=== PATIENT | male | born 1995 | race Two or more races ===

== ENCOUNTER 2024-11-17 11:33 | Emergency (ER) | payer MEDICAID, SELFPAY ==
[2024-11-17 11:35] VITALS: BMI 34.4
[2024-11-17 11:47] VITALS: BP 124/66; PULSE 102; RESP 20; TEMP 39.3; O2SAT 100; BMI 34.6
[2024-11-17 12:28] VITALS: BP 129/84; PULSE 103; RESP 20; TEMP 38; O2SAT 100
--- NOTE | 2024-11-17 12:45 | XR_ITS ---
Examination: PA lateral chest 2 views TECHNIQUE: Upright PA lateral chest 2 views Exam date and time: November 17, 2024 1304 hours INDICATIONS: Coughing this week FINDINGS: Bibasilar pneumonia, right middle lobe pneumonia Normal heart size Lungs are clear IMPRESSION: Bibasilar and right middle lobe pneumonia
[2024-11-17] MEDS: IBUPROFEN TAB 400 MG TABLET 800 MG PO (13:17)
[2024-11-17] MEDS: ACETAMINOPHEN 500 MG TABLET 1000 MG PO (13:17)
--- NOTE | 2024-11-17 13:31 | EDNOTE_ITS ---
ED SOB =RME/HPI General Chief Complaint: Shortness of Breath/Dyspnea Stated Complaint: URI SYMPTOMS<FEELS WORSE NOW Time Seen by Provider: 11/17/24 12:16 Source: patient Arrival date/time: 11/17/24 11:33 This is a 28-year-old male who presents to the emergency department with complaints of bodyaches, fever cough rhinorrhea x 2 days. Patient stating he had pneumonia approximately 2 weeks ago unsure if pneumonia has cleared. Positive sick contacts at home. Mode of arrival: ambulatory Related Data Allergies Allergy/AdvReac Type Severity Reaction Status Date / Time No Known Allergies Allergy Verified 11/17/24 11:37 Review of Systems Review of Systems Systems Reviewed: All systems reviewed, normal except as documented Narrative Review of Systems: Gen: +fever, no chills, no weight loss, + body aches EYES: No discharge, no visual changes, no pain HEENT: No ear pain, no congestion, no sore throat PULM: No shortness of breath, +cough, no congestion CV: No chest pain, no dyspnea on exertion, no palpitations GI: No nausea, no vomiting, no diarrhea, no pain, no constipation : No frequency, no urgency,? no dysuria Musc/skel: No joint pain, no back pain Skin: No rash? Neuro: No weakness, no headache ED Exam Narrative Physical exam: General: Sittiing in Exam table in no acute distress, answering questions appropriately HENT: normocephalic, atraumatic, EOMI, PERRLA, moist mucous membranes Chest: chest wall is nontender Cardiac: regular rate and rhythm, normal S1 and S2, no murmurs, rubs, or gallops, capillary refill ?2 seconds Pulmonary: clear to auscultation bilaterally, no wheezing, crackles, or rhonchi Abdominal: active bowel sounds, soft, nontender, nondistended Neuro: A&OX3, CN II-XII intact, sensation grossly intact bilaterally in UE and LE. Skin: no rashes, no ecchymosis Ext: no lower extremity edema Course Quality Measures none Orders Category Date Time Status XR chest 2V Stat Exams 11/17/24 12:45 Completed Acetaminophen Tab [Tylenol ES Tab] Med 11/17/24 12:45 Discontinued 1,000 mg PO X1 ONE Ibuprofen Tab [Motrin Tab] Med 11/17/24 12:45 Discontinued 800 mg PO X1 ONE Vital Signs Vital signs: Vital Signs Temperature 102.8 F H 11/17/24 11:47 Pulse Rate 102 H 11/17/24 11:47 Respiratory Rate 20 11/17/24 11:47 Blood Pressure 124/66 11/17/24 11:47 Pulse Oximetry (%) 100 11/17/24 11:47 Oxygen Delivery Method Room Air 11/17/24 11:47 Shortness of Breath / Dyspnea MDM Narrative MDM Narrative:: Influenza A positive. Advised to take all medication as directed. Advised to increase hydration. Antipyretics at home. Close follow-up with his PCP strict ER precautions to return if there is any worsening symptoms change in condition. Patient data External records reviewed:: [facility] previous records Clinical information provided by:: patient Social determinants that could affect healthcare access:: none Patient has the following chronic illnesses:: none How is presenting disease/condition affected by chronic disease/condition?: no chronic disease Evaluation data The following diagnostics were reviewed and interpreted by me:: radiology exam(s) Lab and/or radiology exams considered but not ordered:: none Interpretation Summary: Examination: PA lateral chest 2 views TECHNIQUE: Upright PA lateral chest 2 views Exam date and time: November 17, 2024 1304 hours INDICATIONS: Coughing this week FINDINGS: Bibasilar pneumonia, right middle lobe pneumonia Normal heart size Lungs are clear IMPRESSION: Bibasilar and right middle lobe pneumonia Medications / Prescriptions Medications or Prescriptions considered but not ordered:: none Medication administrations:: Medication Administration History Discontinued Medications Acetaminophen (Acetaminophen 500 Mg Tablet) 1,000 mg PO X1 ONE Stop: 11/17/24 12:46 Last Admin: 11/17/24 13:17 Dose: 1,000 mg Documented By: CARLOS A Ibuprofen (Ibuprofen Tab 400 Mg Tablet) 800 mg PO X1 ONE Stop: 11/17/24 12:46 Last Admin: 11/17/24 13:17 Dose: 800 mg Documented By: CARLOS A all medications administered and effective Consultations Consultation(s) initiated? (list below): No Diagnosis Shortness of Breath Differential Diagnosis: acute exacerbation of chronic obstructive airways disease, community acquired pneumonia, asthma with exacerbation and other Most likely diagnosis given after review of the tests above:: Influenza A Admission Indicated Admission indicated?: not indicated Explain why admission is indicated or not indicated:: none Admission Request Was there a request for admission?: No Disposition Plan Disposition Plan: Discharge Discharge Attestation Discharge Attestation: The patient and all family members were given an opportunity to ask questions and understood the discharge instructions. Discharge instructions specifically effects, indications for sooner follow up or return to the emergency department, and the expected course of current diagnosis. Patient condition: Stable Discharge Plan Plan Patient Disposition: HOME (Self Care) Patient condition on transfer: Stable Problem List Clinical Impression: Influenza A Patient/Caregiver Discharge Instructions Discharge Activity: activity as tolerated Education Materials: ED Influenza (Adult) Additional Instructions: Start Tamiflu, antipyretics to pharmacy. 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 Please follow-up with your clinic 3-day follow-up. If you develop any type of respiratory distress or change in condition please go immediately to nearest emergency department Print Language: Tajik Stand Alone Forms: Tisha Award Info., Patient Portal Info Letter PA/ABDIEL Supervising Physician KAITLYNN/ABDIEL Supervising Physician: Dr Meléndez
== END 2024-11-17 13:45 | disposition home or self-care (01) ==
PROVIDERS: Emergency Provider Emergency Medicine; PCP Family Medicine
DX: J10.00 Influenza due to other identified influenza virus with unspecified type of pneumonia (principal)
CPT/HCPCS: 71046; 99283; A9270

== ENCOUNTER 2024-12-07 21:21 | Inpatient (IN) | payer MEDICAID, SELFPAY ==
[2024-12-07] VITALS (8 sets, daily range): BP systolic 168–194; BP diastolic 103–111; PULSE 71–100; RESP 15–21; TEMP 36.9; O2SAT 98–100; BMI 29.5
--- NOTE | 2024-12-07 21:29 | XR_ITS ---
Examination: AP chest single view Technique one AP portable supine chest single view Exam date and time: December 07, 2024 10:22 PM Comparison November 17, 2024. Indications: Onset chest pain today. Findings: Normal heart size. Lungs are clear. The osseous structures are intact Impression: No active disease
--- NOTE | 2024-12-07 21:55 | PC.NURSE ---
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 Stroke alert called by myself
--- NOTE | 2024-12-07 22:04 | PC.NURSE ---
stroke consult Case # [id number]
--- NOTE | 2024-12-07 22:07 | XR_ITS ---
Examination: CT brain head without contrast. 2-D sagittal coronal reconstructions Date and time of exam:December 07, 2024 at 10:11 PM Indications: Stroke alert, onset altered mental status today CTDI: vol (mGy):55.1 DLP: (mGycm):1108 Technique: Multiple CT axial sections of the brain have been obtained, 5 mm slice thickness. Contrast has not been administered. 2-D sagittal, coronal reconstructions have been obtained Low dose protocols were performed. One or more of the following dose reduction techniques were used; automated exposure control, adjustment of the mA and/or KV according to patient size, use of iterative reconstruction technique. Findings: No significant ventricular enlargement. Intra-axial or extra-axial hemorrhage density is not seen. No mass effect or midline shift Basal cisterns are not remarkable. Fourth ventricle is midline. Cranial vault intact. Impression: Negative for acute hemorrhage, mass effect or midline shift
--- NOTE | 2024-12-07 22:07 | XR_ITS ---
Examination: CTA carotids with intravenous contrast CTA brain, head with intravenous contrast. 2-D sagittal, coronal reconstructions. 3-D reconstructions. Exam date and time: December 08, 2024 at 0039 hours INDICATIONS: Stroke alert, onset focal neurologic deficit including altered mental status this evening CTDI: vol (mGy) 23 DLP: (mGycm) 854 Technique: Multiple CTA axial brain, head carotid images post intravenous contrast injection 75 cc, Isovue-[id number]. 2-D sagittal, coronal reconstructions. 3-D reconstructions, 3-D post processing including vascular maximum intensity projection images. Low dose protocols were performed. One or more of the following dose reduction techniques were used; automated exposure control, adjustment of the mA and/or KV according to patient size, use of iterative reconstruction technique. Findings: No significant common carotid carotid bifurcation or internal carotid artery stenoses Codominant vertebral arteries with no critical stenoses Limited cerebral arterial evaluation No cerebral large vessel arterial occlusions, thrombus,. IMPRESSION: No significant neck arterial stenoses Limited cerebral arterial evaluation, no large vessel occlusions
--- NOTE | 2024-12-07 22:07 | EKG_ITS ---
[facility] Test Date: 2024-12-07 Pat Name: JEANIE CAMARILLO Department: Room: - Gender: Male Director Of [employer]: : 1995 Requested By: Vianney Zamudio Order Number: [id number] Reading MD: Vianney Zamudio Measurements Intervals Peyton Rate: 77 P: 18 FL: 178 QRS: 31 QRSD: 89 T: 25 QT: 381 QTc: 433 Interpretive Statements SINUS RHYTHM No previous ECG available for comparison /store/S0/[id number]
--- NOTE | 2024-12-07 22:15 | PD.EDAMS ---
Altered Mental Status RME/HPI General Chief Complaint: Altered Mental Status Stated Complaint: ALTERED Time Seen by Provider: 12/07/24 21:28 Arrival date/time: 12/07/24 21:21 Mode of arrival: EMS RME / HPI RME / HPI narrative: Dr. Lee's Main ED Evaluation: 28yo male VITALIY from home presents to the ED for a chief complaint of altered mental status. Per EMS, patient's LKWT is unknown. Per family, patient has been having a headache for the last one week. Full ROS is unobtainable due to the patient's AMS. No family member is present with the patient. Related Data Home Medications ?Medication ?Instructions ?Recorded ?Confirmed No Known Home Medications 12/07/24 12/07/24 Allergies Allergy/AdvReac Type Severity Reaction Status Date / Time No Known Allergies Allergy Verified 11/17/24 11:37 Review of Systems Review of Systems ROS Unobtainable: unobtainable due to mental status Past Medical History Social History SMOKING STATUS: Never smoker ED Exam Narrative Physical exam: Brought in on stretcher, appears confused and cannot state his name. General General appearance: Present other (is mumbling and not answering questions appropriately; is looking over to the side; appears stimulated by internal stimuli; is looking around the room) Head Head exam: Present atraumatic and normocephalic Eye Eye exam: Present normal appearance; Absent scleral icterus, conjunctival injection, nystagmus, miosis or mydriasis Neck Neck exam: Present full ROM (decreased); Absent lymphadenopathy or other (neck stiffness) Chest Chest inspection: Present normal inspection and symmetric chest wall rise; Absent tenderness or rash Respiratory Respiratory exam: Absent accessory muscle use Cardiovascular Cardiovascular exam: Present regular rate and normal rhythm; Absent systolic murmur or diastolic murmur Abdominal Exam Abdominal exam: Present other (large, no fluid wave) exam: Absent circumcised Extremities Exam Extremities exam: Present normal inspection and full ROM Back Exam Back exam: Present normal inspection and full ROM; Absent tenderness, CVA tenderness (R), CVA tenderness (L), paraspinal tenderness or vertebral tenderness Neurological Exam Neurological exam: Present other (is not answering questions appropriately and is mumbling) Psychiatric Psychiatric exam: Present other (combative) Skin Skin exam: Present warm and dry Course Course Course Narrative: CXR is ordered to r/o aspiration pneumonia. 0041: Spoke with the patient's , who states the patient has been nonverbal and anxious. She states the patient has had chills and a headache for the last 2 months. She states the patient has not been eating much recently for the last 1 month. is unsure if the patient does any drugs. She states he saw his PCP on Wednesday and he was normal at the time. She states the patient has not been able to recognize her or other family members that started at 1999, reporting he was in a similar state 2 weeks ago. She states he's been talking, but hasn't been making any sense. 0117: Patient opens his eyes and has purposeful movements, but is agitated and combative. Ketamine was given for agitation. Patient seems less agitated after being given ketamine and Ativan, however, became more combative when trying to complete the CTA. Risks versus benefits were discussed with the patient's regarding LP and intubation due to concern for encephalitis and/or other emergent diagnoses. I answered any and all questions she had regarding these procedures. Patient's agreed to LP an intubation. Quality Measures none Orders Category Date Time Status Bedside Blood Glucose NOW Care 12/07/24 22:07 Active Bedside COVID-19 Antigen Test NOW Care 12/08/24 00:41 Active Bedside Influenza A&B Antigen Test NOW Care 12/08/24 00:41 Active Shell Trim Operator NOW Care 12/07/24 22:07 Active Continuous Pulse Oximetry NOW Care 12/07/24 22:07 Completed EKG (ED ONLY) *Do not use* NOW Care 12/07/24 22:07 Completed In and Out Catheter NEEDED Care 12/07/24 22:07 Active Insert IV NOW Care 12/07/24 22:07 Active NIH Stroke Scale now Care 12/07/24 22:07 Active NPO NOW Care 12/07/24 22:07 Active Nurse Swallow Screen x1 Care 12/07/24 22:07 Active Consult to Neurology / Tele-Neurology Routine Cons 12/07/24 22:[address] angio stroke protocol Stat Exams 12/07/24 22:[address] stroke protocol Stat Exams 12/07/24 22:07 Completed CXRP [XR chest 1V portable] Stat Exams 12/07/24 21:29 Completed EKG (ED Only) Stat Exams 12/07/24 22:07 Draft XR chest 1V post procedure Stat Exams 12/08/24 01:47 Taken ABG [Arterial Blood Gas] Stat Lab 12/08/24 02:25 Ordered Alcohol, Blood Medical Stat Lab 12/08/24 01:05 Completed Ammonia Stat Lab 12/07/24 23:15 Completed Bacterial Ag-Ltx, CSF Stat Lab 12/08/24 02:35 Received Blood Culture (Lab) Stat Lab 12/08/24 02:38 Received CBC Stat Lab 12/07/24 23:15 Completed CRP [C-Reactive Protein] Stat Lab 12/08/24 01:05 Completed CSF Culture and Gram Stain Stat Lab 12/08/24 02:35 Received Cell Count w Diff, CSF Stat Lab 12/08/24 02:35 Completed Cocci Serology IgM with reflex to IgG [Cocci Serology, Lab 12/08/24 01:05 Received Unk History] Stat Coccid Serology, CF CSF (UCD)* Stat Lab 12/08/24 02:35 Received Comprehensive Metabolic Panel Stat Lab 12/07/24 23:15 Completed Creatine Kinase Stat Lab 12/07/24 23:15 Completed Drug Screen,Urine Stat Lab 12/08/24 00:15 Completed Enterovirus RNA, PCR, CSF Stat Lab 12/08/24 02:35 Received Glucose,CSF Stat Lab 12/08/24 02:35 Completed HCG Titer if Positive Stat Lab 12/07/24 23:15 Completed HSV-1&2 DNA, QN, CSF* Stat Lab 12/08/24 02:35 Received Lactic Acid [Lactate (Lactic Acid)] Stat Lab 12/08/24 01:05 Completed Magnesium Stat Lab 12/07/24 23:15 Completed Oligoclonal Bands, CSF* Stat Lab 12/08/24 02:35 Received Partial Thromboplastin Time Stat Lab 12/07/24 23:15 Completed Procalcitonin Stat Lab 12/08/24 01:05 Completed Protein Total,CSF Stat Lab 12/08/24 02:35 Completed Prothrombin Time with INR Stat Lab 12/07/24 23:15 Completed Sed Rate (ESR) Stat Lab 12/07/24 23:15 Completed Sputum Culture and Gram Stain Stat Lab 12/08/24 02:30 Received Troponin I Stat Lab 12/07/24 23:15 Completed Urinalysis Stat Lab 12/08/24 00:15 Completed Urine Culture Stat Lab 12/08/24 00:15 Received VBG [Venous Blood Gas] Stat Lab 12/07/24 23:15 Completed VDRL, CSF Qual* Stat Lab 12/08/24 02:35 Received Acetaminophen Ivpb [Ofirmev Inj] Med 12/08/24 03:18 Discontinued 1,000 mg in 100 ml IV X1 Acyclovir Inj [Zovirax Inj] 907 mg Med 12/08/24 03:45 Active Sodium Chloride 0.9% [Ns] 100 ml IV X1 Ampicillin Inj 2,000 mg Med 12/08/24 03:19 Active Sodium Chloride 0.9% (P) [NS 0.9% mini bag] 100 ml IV X1 Etomidate Inj [Amidate Inj] Med 12/08/24 01:36 Discontinued 20 mg IVP X1 ONE Etomidate Inj [Amidate Inj] Med 12/08/24 01:17 Discontinued 40 mg .ROUTE .STK-MED ONE Ketamine Inj Med 12/07/24 22:56 Discontinued 50 mg IVP X1 ONE LORazepam [Ativan Inj] Med 12/07/24 23:25 Discontinued 2 mg IVP X1 ONE Midazolam Inj [Versed Inj] Med 12/08/24 01:17 Discontinued 4 mg .ROUTE .STK-MED ONE Midazolam Inj [Versed Inj] Med 12/08/24 02:06 Discontinued 4 mg IV X1 ONE Midazolam Inj [Versed Inj] Med 12/08/24 02:46 Discontinued 4 mg IV X1 ONE Midazolam/Ns 100 mg Ivpb [Versed Pf Inj in Ns Premix] Med 12/08/24 02:52 Active 100 mg in 100 ml IV 1 mg/hr Ondansetron Inj [Zofran Inj] Med 12/07/24 22:07 Active 4 mg IV Q4HR PRN Propofol 1,000 mg Ivpb [Diprivan Ivpb] Med 12/08/24 02:06 Discontinued 1,000 mg in 100 ml IV .STK-MED Propofol 1,000 mg Ivpb [Diprivan Ivpb] Med 12/08/24 02:08 Active 1,000 mg in 100 ml IV 5 mcg/kg/min Sodium Chloride 0.9% 500 ml [Ns] 500 ml Med 12/08/24 00:38 Discontinued IV 999 mls/hr Succinylcholine Inj [Anectine Inj] Med 12/08/24 01:36 Discontinued 200 mg IV X1 ONE Succinylcholine Inj [Anectine Inj] Med 12/08/24 01:18 Discontinued 400 mg .ROUTE .STK-MED ONE Vancomycin Inj 2,000 mg Med 12/08/24 03:15 Active Sodium Chloride 0.9% 500 ml [Ns] 500 ml IV X1 cefTRIAXone/D5w 1gm IV premix [Rocephin/D5w 1gm IV Med 12/08/24 03:17 Discontinued premix] 50 ml IV X1 cefTRIAXone/D5w 1gm IV premix [Rocephin/D5w 1gm IV Med 12/08/24 03:37 Active premix] 50 ml IV X1 Mechanical [Volume Ventilator] Stat RT 12/08/24 Active Oxygen Delivery NOW RT 12/07/24 22:07 Active Vital Signs Vital signs: Vital Signs Pulse Rate 75 12/07/24 23:13 Respiratory Rate 17 12/07/24 23:13 Blood Pressure 194/107 H 12/07/24 23:13 Pulse Oximetry (%) 100 12/07/24 23:13 Oxygen Delivery Method Nasal Cannula 12/07/24 23:13 Procedures -ED Procedure Comment See Dr. Sotelo, the resident physician's notes for the lumbar puncture and intubation procedures. Altered Mental Status Patient data External records reviewed:: [facility] previous records (Per chart review, patient was seen here on 11/17/24 for Influenza A.) Clinical information provided by:: EMS Social determinants that could affect healthcare access:: none Patient has the following chronic illnesses:: none How is presenting disease/condition affected by chronic disease/condition?: no chronic disease Evaluation data The following diagnostics were reviewed and interpreted by me:: lab results, radiology exam(s) and EKG tracing(s) Lab and/or radiology exams considered but not ordered:: none Interpretation Summary: WBC count is elevated at 13.2, Sodium is low at 127, Glucose is 123, PTT is normal, PT is elevated at 13.2, Lactic Acid is normal, Total Creatinine Kinase is elevated at 287, Sed Rate is elevated at 68, Ammonia is normal at 26, CRP is elevated at 2.1, UA is unremarkable, UDS is negative, Blood alcohol is negative, CSF total protein is elevated at 160, CSF Glucose is low at 26, according to my interpretation. Post procedure CXR shows the ET tube at the right mainstem (ET tube pushed back), no pneumothorax, no infiltrates, no pleural effusion, no CHF according to my interpretation. EKG done at 2325, NSR, rate of 77, normal axis, normal intervals, QTc: 433, no STEMI, no previous EKG available for comparison, according to my interpretation. ------ [facility] Report Signed Patient: JEANIE ACMARILLO. Record#: [id number] Birthdate: 1995 Age/Sex: 28 / M Location: [facility] Attending Dr: Ordering Physician: Vianney Lee MD Date of Service: 12/07/24 Procedure(s): XR chest 1V portable Accession Number(s): [id number] cc: Eb Persaud MD; NO PRIMARY/FAMILY,PHYSICIAN; Vianney Lee MD~ Examination: AP chest single view Technique one AP portable supine chest single view Exam date and time: December 07, 2024 10:22 PM Comparison November 17, 2024. Indications: Onset chest pain today. Findings: Normal heart size. Lungs are clear. The osseous structures are intact Impression: No active disease Dictated By: Eb Persaud MD Signed By: <Electronically signed by Eb Persaud MD in [place]> 12/07/24 2347 [facility] Report Signed Patient: JEANIE CAMARILLO. Record#: [id number] Birthdate: 1995 Age/Sex: 28 / M Location: [facility] Attending Dr: Ordering Physician: Vianney Lee MD Date of Service: 12/07/24 Procedure(s): CT stroke protocol Accession Number(s): [id number] cc: Eb Persaud MD; Vianney Lee MD~ Examination: CT brain head without contrast. 2-D sagittal coronal reconstructions Date and time of exam:December 07, 2024 at 10:11 PM Indications: Stroke alert, onset altered mental status today CTDI: vol (mGy):55.1 DLP: (mGycm):1108 Technique: Multiple CT axial sections of the brain have been obtained, 5 mm slice thickness. Contrast has not been administered. 2-D sagittal, coronal reconstructions have been obtained Low dose protocols were performed. One or more of the following dose reduction techniques were used; automated exposure control, adjustment of the mA and/or KV according to patient size, use of iterative reconstruction technique. Findings: No significant ventricular enlargement. Intra-axial or extra-axial hemorrhage density is not seen. No mass effect or midline shift Basal cisterns are not remarkable. Fourth ventricle is midline. Cranial vault intact. Impression: Negative for acute hemorrhage, mass effect or midline shift Dictated By: Eb Persaud MD Signed By: <Electronically signed by Eb Persaud MD in [place]> 12/07/24 2216 ------ [facility] Preliminary Report Draft Patient: JEANIE CAMARILLO Record#: [id number] Birthdate: 1995 Age/Sex: 28 / M Location: [facility] Attending Dr: Ordering Physician: Date of Service: Procedure(s): Accession Number(s): cc: ~ CT angiogram of the head and neck with intravenous contrast (axial sections with sagittal and coronal reformats) December 08, 2024 0039 hours Clinical History: Focal neuro deficit, stroke suspected Poor historian & no priors Comparison: None. Findings: Head: The internal carotid, middle and anterior cerebral arteries are patent bilaterally. The intracranial vertebral arteries are patent. The vertebrobasilar junction, basilar and posterior cerebral arteries are patent. No evidence of large vessel occlusion, critical stenosis or aneurysm. Neck: The aortic arch to the extent visualized as well as the origins of the right brachiocephalic, left common carotid, and left subclavian arteries are patent. The common carotid arteries, carotid bulbs, and internal and external carotid arteries are patent. The origins of the vertebral arteries are unremarkable. The right and left vertebral arteries are codominant. No evidence of vascular occlusion, critical stenosis, dissection or aneurysm. The soft tissues of the neck are unremarkable. The osseous structures are unremarkable. Impression: Head: No evidence of large vessel occlusion, critical stenosis or aneurysm. Neck: No evidence of vascular occlusion, critical stenosis, dissection or aneurysm. Discussion Details: Results verbally communicated to Marko Hemphill RN at 04:48 AM ET 08/12/2024. A call back number is provided to facilitate direct [id number] communication. Report Electronically Signed By: Michoacano Rendon 12/08/2024 1:52:09 AM [EST] Medications / Prescriptions Medications or Prescriptions considered but not ordered:: none Medication administrations:: Medication Administration History Propofol (Diprivan Ivpb) 1,000 mg in 100 mls @ 2.722 mls/hr IV .Q24H PRN; Protocol PRN Reason: PER PROTOCOL Stop: 01/07/25 02:07 Last Titration: 12/08/24 03:32 Dose: 15 mcg/kg/min, 8.165 mls/hr Documented By: Admin: 12/08/24 02:15 Dose: 5 mcg/kg/min, 2.722 mls/hr Documented By: TC Co-signed By: SE Midazolam HCl (Versed Pf Inj In Ns Premix) 100 mg in 100 mls @ 1 mls/hr IV .Q24H PRN; Protocol PRN Reason: PER PROTOCOL Stop: 12/13/24 02:51 Last Admin: 12/08/24 03:04 Dose: 10 mg/hr, 10 mls/hr Documented By: TC Co-signed By: KG Vancomycin HCl 2,000 mg/ (Sodium Chloride) 500 mls @ 150 mls/hr IV X1 ONE Stop: 12/08/24 06:34 Ampicillin Sodium 2,000 mg/ (Sodium Chloride) 100 mls @ 100 mls/hr IV X1 ONE Stop: 12/08/24 04:18 Last Admin: 12/08/24 03:37 Dose: 100 mls/hr Documented By: TC Ceftriaxone Sodium/Dextrose (Rocephin/D5w 1gm Iv Premix) 50 mls @ 100 mls/hr IV X1 ONE Stop: 12/08/24 04:06 Last Admin: 12/08/24 03:49 Dose: 100 mls/hr Documented By: TC Acyclovir Sodium 907 mg/ (Sodium Chloride) 118.14 mls @ 100 mls/hr IV X1 ONE Stop: 12/08/24 04:55 Ondansetron HCl (Ondansetron Inj 2 Mg/Ml Inj 2 Ml) 4 mg IV Q4HR PRN PRN Reason: NAUSEA OR VOMITING Stop: 01/06/25 22:06 Last Admin: 12/07/24 23:13 Dose: 4 mg Documented By: TC Discontinued Medications Etomidate (Etomidate Inj 2 Mg/Ml Vial 10 Ml) Confirm Administered Dose 40 mg .ROUTE .STK-MED ONE Stop: 12/08/24 01:18 Last Admin: 12/08/24 01:42 Dose: Not Given Documented By: TC Non-Admin Reason: Duplicate Medication on eMAR Etomidate (Etomidate Inj 2 Mg/Ml Vial 10 Ml) 20 mg IVP X1 ONE Stop: 12/08/24 01:37 Last Admin: 12/08/24 01:41 Dose: 20 mg Documented By: TC Sodium Chloride (Ns) 500 mls @ 999 mls/hr IV .Q31M ONE Stop: 12/08/24 01:08 Last Admin: 12/08/24 02:36 Dose: Not Given Documented By: SE Non-Admin Reason: Cancelled by Provider Propofol (Diprivan Ivpb) Confirm Administered Dose 1,000 mg in 100 mls @ ud IV .STK-MED ONE Stop: 12/08/24 02:07 Last Admin: 12/08/24 02:16 Dose: Not Given Documented By: TC Non-Admin Reason: Duplicate Medication on eMAR Acetaminophen (Ofirmev Inj) 1,000 mg in 100 mls @ 250 mls/hr IV X1 ONE Stop: 12/08/24 03:41 Last Admin: 12/08/24 03:35 Dose: 250 mls/hr Documented By: TC Ceftriaxone Sodium/Dextrose (Rocephin/D5w 1gm Iv Premix) 50 mls @ 100 mls/hr IV X1 ONE Stop: 12/08/24 03:46 Last Admin: 12/08/24 03:44 Dose: 100 mls/hr Documented By: Infusion: 12/08/24 03:44 Dose: Infused Documented By: Admin: 12/08/24 03:32 Dose: 100 mls/hr Documented By: TC Ketamine HCl (Ketamine 50 Mg/Ml Vial 10 Ml) 50 mg IVP X1 ONE Stop: 12/07/24 22:57 Last Admin: 12/07/24 23:13 Dose: 50 mg Documented By: TC Lorazepam (Lorazepam 2 Mg/Ml Vial) 2 mg IVP X1 ONE Stop: 12/07/24 23:26 Last Admin: 12/08/24 00:12 Dose: 2 mg Documented By: TC Midazolam HCl (Midazolam Inj 1 Mg/Ml Vial 2 Ml) Confirm Administered Dose 4 mg .ROUTE .STK-MED ONE Stop: 12/08/24 01:18 Last Admin: 12/08/24 01:42 Dose: Not Given Documented By: TC Non-Admin Reason: Duplicate Medication on eMAR Midazolam HCl (Midazolam Inj 1 Mg/Ml Vial 2 Ml) 4 mg IV X1 ONE Stop: 12/08/24 02:07 Last Admin: 12/08/24 02:14 Dose: 4 mg Documented By: TC Midazolam HCl (Midazolam Inj 1 Mg/Ml Vial 2 Ml) 4 mg IV X1 ONE Stop: 12/08/24 02:47 Succinylcholine Chloride (Succinylcholine Inj 20 Mg/Ml Vial 10 Ml) Confirm Administered Dose 400 mg .ROUTE .STK-MED ONE Stop: 12/08/24 01:19 Last Admin: 12/08/24 01:42 Dose: Not Given Documented By: TC Non-Admin Reason: Duplicate Medication on eMAR Succinylcholine Chloride (Succinylcholine Inj 20 Mg/Ml Vial 10 Ml) 200 mg IV X1 ONE Stop: 12/08/24 01:37 Last Admin: 12/08/24 01:44 Dose: 200 mg Documented By: TC see above Consultations Consultation(s) initiated? (list below): Yes Consultation #1 (Physician, Specialty, Details): Discussed case with [Dr. Feliciano] from [teleneurology] regarding [consultation]. Discussed patients ED course, exam findings, labs, and radiology results. States the patient is not a tPA candidate due to not feeling that the patient is having a stroke and feels that the patient is agitated. Time: 22:44 Consultation #2 (Physician, Specialty, Details): Discussed case with [the ICU resident] from Hospitalist service regarding admission. Discussed patients ED course, exam findings, labs, and radiology results. The Hospitalist [agrees] to accept the patient for admission. Time: 03:49 Diagnosis Differential diagnosis altered mental status: other (meningitis, drug use, seizure, other metabolic dysfunction, stroke, psychiatric disease, ICH, cancer) Most likely diagnosis given after review of the tests above:: see below Admission Indicated Admission indicated?: indicated Admission Request Was there a request for admission?: Yes Admission Attestation Admission request attestation: Discussed case with [] from Hospitalist service regarding admission. Discussed patients ED course, exam findings, labs, and radiology results. The Hospitalist [agrees,declines] to accept the patient for admission. Disposition Plan Disposition Plan: Admit Critical Care Time Critical Care Time Critical Care Time: Yes Total Critical Care Time (min.): 45 Attestation: The high probability of sudden, clinically significant deterioration in the patient?s condition required the highest level of my preparedness to intervene urgently. The services I provided to this patient were to treat and/or prevent clinically significant deterioration. Services included the following: chart data review, reviewing nursing notes and/or old charts, documentation time, safety and health consultant collaboration regarding findings and treatment options, medication orders and management, direct patient care, vital sign assessments and ordering, interpreting and reviewing diagnostic studies and lab tests. Aggregate critical care time includes only time during which I was engaged in work directly related to the patient?s care, as described above, whether at bedside or elsewhere in the Emergency Department. It did not include time spent performing other reported procedures or the services of residents, students, nurses or physician assistants. Discharge Plan Plan Patient Disposition: Admit Acute Care w/in Hospital Patient condition on transfer: Stable Prescriptions/Referrals Prescriptions/Med Rec: No Action No Known Home Medications Referrals: No Primary/Family,Physician [Primary Care Provider] - In 1 week Problem List Clinical Impression: Altered mental status, Meningitis Patient/Caregiver Discharge Instructions Print Language: Egyptian Stand Alone Forms: Tisha Award Info., Patient Portal Info Letter
[2024-12-07] MEDS: KETAMINE 50 MG/ML VIAL 10 ML IVP (23:13)
[2024-12-07] MEDS: ONDANSETRON INJ 2 MG/ML INJ 2 ML 4 MG IV (23:13)
--- NOTE | 2024-12-07 23:24 | PD.TNEURO ---
Tele Neuro Consultation Consultation Date 12/07/24 Most Recent Vital Signs Last Vital Signs Pulse 75 12/07/24 23:13 Resp 17 12/07/24 23:13 BP 194/107 H 12/07/24 23:13 Pulse Ox 100 12/07/24 23:13 O2 Del Method Nasal Cannula 12/07/24 23:13 Consultation Narrative [facility] Tele[facility]urology Consult Services Patient Name:???yamilka hooker Date of :???1995 Identification Number:??? Date of Service:???12/07/2024 22:04:06 Diagnosis:?R45.1 - Restlessness and agitation Impression: ?28 yo man presenting for evaluation of agitation and combativeness. Unclear etiology, unclear PMH. No focal deficits noted. Overall low suspicion of stroke. I certainly would not recommend use of thrombolytics. I do think he will need to be admitted for further workup. Our recommendations are outlined below. Recommendations: ? Stroke/Telemetry Floor ? Neuro Checks ? Bedside Swallow Eval ? DVT Prophylaxis ? IV Fluids, Normal Saline ? Head of Bed 30 Degrees ? Euglycemia and Avoid Hyperthermia (PRN Acetaminophen) Advanced Imaging:Advanced Imaging Deferred because: Stroke not suspected with clinical presentation and exam Metrics: Last Known Well: Unknown Dispatch Time: 12/07/2024 22:04:06 Arrival Time: 12/07/2024 21:21:00 Initial Response Time: 12/07/2024 22:08:57Symptoms: agitation. Initial patient interaction: 12/07/2024 22:17:55 NIHSS Assessment Completed: 12/07/2024 22:18:50Patient is not a candidate for Thrombolytic. Thrombolytic Medical Decision: 12/07/2024 22:19:30Patient was not deemed candidate for Thrombolytic because of following reasons: other diagnosis suspected see impression. CT head showed no acute hemorrhage or acute core infarct. Primary Provider Notified of Diagnostic Impression and Management Plan on: 12/07/2024 22:43:34 History of Present Illness:Patient is a 28 year old Male. Patient was brought by EMS for symptoms of agitation. This is a 28 yo man who presents for evaluation of agitation and being combative. I believe EMS told ER staff last normal was 1900 but this is unverified. The patient is Montserratian speaking only and is not cooperating with staff. Not answering questions, but swearing at staff and asking for a female nurse. No focal deficits noted: he is moving all extremities seemingly equally. No obvious facial droop, no gaze deviation. Head CT negative. ? Past Medical History: Other PMH:? unclear Medications: Anticoagulant use:??Unknown Antiplatelet use:?Unknown Reviewed EMR for current medications Allergies:? Description:?unknown patient not cooperating Social History: Unable To Obtain Due To Patient Status :?Patient Cannot Communicate Relevant Social History Family History: Family History Cannot Be Obtained Because:Patient Cannot Speak ROS :?ROS Cannot Be Obtained Because:? Patient Cannot Speak Past Surgical History: Past Surgical History Cannot Be Obtained Because: Patient Cannot Speak There Is No Surgical History Contributory To Today?s Visit ? Examination: BP(194/107),?Pulse(75), 1A: Level of Consciousness - Alert; keenly responsive?+ 0 1B: Ask Month and Age - Could Not Answer Either Question Correctly?+ 2 1C: Blink Eyes & Squeeze Hands - Performs 0 Tasks?+ 2 2: Test Horizontal Extraocular Movements - Normal?+ 0 3: Test Visual Palacios - No Visual Loss?+ 0 4: Test Facial Palsy (Use Grimace if Obtunded) - Normal symmetry?+ 0 5A: Test Left Arm Motor Drift - No Drift for 10 Seconds?+ 0 5B: Test Right Arm Motor Drift - No Drift for 10 Seconds?+ 0 6A: Test Left Leg Motor Drift - No Drift for 5 Seconds?+ 0 6B: Test Right Leg Motor Drift - No Drift for 5 Seconds?+ 0 7: Test Limb Ataxia (FNF/Heel-Stanford) - No Ataxia?+ 0 8: Test Sensation - Normal; No sensory loss?+ 0 9: Test Language/Aphasia - Normal; No aphasia?+ 0 10: Test Dysarthria - Normal?+ 0 11: Test Extinction/Inattention - No abnormality?+ 0 NIHSS Score:?4 Pre-Morbid Modified Paula Scale:0 Points = No symptoms at all Spoke with :?Dr. Lee This consult was conducted in real time using interactive audio and video technology. Patient was informed of the technology being used for this visit and agreed to proceed. Patient located in hospital and provider located at home/office setting. Patient is being evaluated for possible acute neurologic impairment and high probability of imminent or life-threatening deterioration. I spent total of 20 minutes providing care to this patient, including time for face to face visit via telemedicine, review of medical records, imaging studies and discussion of findings with providers, the patient and/or family. Dr Serg Feliciano [facility] For Inpatient follow-up with [facility] physician please call [facility] at . As we are not an outpatient service for any post hospital discharge needs please contact the hospital for assistance. If you have any questions for the [facility] physicians or need to reconsult for clinical or diagnostic changes please contact us via [facility] at . ?
[2024-12-07 23:36] LABS: Base Excess, Venous 0 (-3-3); O2 Saturation, Venous 100 % (96-97); PCO2, Venous 37 mmHg (36-56); PO2, Venous 179 mmHg (15-58); pH, Venous 7.42 (7.33-7.66)
[2024-12-07 23:56] LABS: Ammonia 26 uMol/L (11-32)
[2024-12-07 23:57] LABS: Alanine Aminotransferase 42 U/L (10-49); Albumin, Serum 4.9 gm/dL (3.5-5.0); Albumin/Globulin Ratio 1.4 (1.2-2.2); Alkaline Phosphatase 76 U/L (46-116); Anion Gap 11 (7-16); Aspartate Amino Transferase 21 U/L (0-34); BUN/Creatinine Ratio 8 Ratio (12-20); Bilirubin,Total 1.1 mg/dL (0.3-1.2); Blood Urea Nitrogen 8 mg/dL (9-23); Calcium 9.7 mg/dL (8.3-10.6); Calcium (Corrected) 9.7 mg/dL (8.5-10.1); Carbon Dioxide 22.9 mMol/L (20.0-31.0); Chloride 93 mMol/L (98-107); Creatine Kinase 287 U/L (34-171); Estimated Creatinine Clearance 122.4 mL/min (>60); Globulin 3.4 gm/dL (2.3-3.5); Glucose 123 mg/dL (74-106); Magnesium 2.1 mg/dL (1.6-2.6); Osmolality,Calculated 254 (275-295); Potassium 3.5 mMol/L (3.4-5.1); Sodium 127 mMol/L (136-145); Total Protein 8.3 gm/dL (5.7-8.2); Troponin I < 0.020 ng/mL (0.0-0.045); eGFR > 60 See Note
[2024-12-07 23:58] LABS: Basophils % (Auto) 0 % (0-2.5); Eosinophils % (Auto) 0 % (0-10); Hematocrit 40.2 % (41.0-53.0); Hemoglobin 14.4 g/dL (13.5-16.0); Immature Granulocytes % (Auto) 0 % (0-0); Immature Granulocytes Auto 0.05 Thou/mm3 (0.00-0.00); Lymphocytes # (Auto) 2.8 Thou/mm3 (1.0-4.8); Lymphocytes % (Auto) 21 % (10-50); Mean Corpuscular HGB Conc 35.8 g/dl (31.0-37.0); Mean Corpuscular Hemoglobin 29.4 pg (25.0-35.0); Mean Corpuscular Volume 82 fL (80-100); Monocytes # (Auto) 0.8 Thou/mm3 (0.0-0.8); Monocytes % (Auto) 6 % (0-12); Neutrophils # (Auto) 9.5 Thou/mm3 (1.8-7.7); Neutrophils % (Auto) 72 % (37-80); Nucleated Red Blood Cell % 0 /100 WBC (0); Platelet Count 261 Thou/mm3 (140-440); RDW Standard Deviation 37.2 fL (35.1-43.9); White Blood Count 13.2 Thou/mm3 (3.8-10.6)
[2024-12-08] VITALS (80 sets, daily range): BP systolic 101–169; BP diastolic 54–107; PULSE 47–117; RESP 11–22; TEMP 36–38; O2SAT 85–100; BMI 30.7
[2024-12-08 00:06] LABS: INR 1.2 (0.9-1.3); Partial Thromboplastin Time 29.9 Seconds (22.0-36.0); Prothrombin Time 13.2 Seconds (9.0-12.2)
[2024-12-08] MEDS: LORazepam 2 MG/ML VIAL IVP (00:12)
[2024-12-08 00:19] LABS: Collection Type, Urine Voided; Squamous Epithelial Cell,Urine 0 /hpf (0-5)
[2024-12-08 00:24] LABS: Bilirubin,Urine Negative (Negative); Blood,Urine Negative (Negative); Clarity,Urine Clear (Clear/Hazy); Color,Urine Colorless (Lt Yel-Yel); Glucose, Urine Negative (Negative); Ketones,Urine Negative (Negative); Leukocyte Esterase,Urine Negative (Negative); Nitrite,Urine Negative (Negative); PH,Urine 7.5 (5.0-7.0); Protein,Urine Negative (Neg - Trace); RBC,Urine 2 /hpf (0-3); Specific Gravity,Urine 1.005 (1.001-1.035); Urobilinogen,Urine Negative mg/dL (0.0-1.0); WBC,Urine 4 /hpf (0-5)
[2024-12-08 00:30] LABS: HCG Titer if Positive Negative
[2024-12-08 00:33] LABS: Amphetamine/Methamp Scrn,U Negative (Negative); Barbiturate Screen,Urine Negative (Negative); Benzodiazepines Screen,Urine Negative (Negative); Benzoylecgonine Screen, Ur Negative (Negative); Fentanyl Screen,Urine Negative (Negative); Opiate Screen,Urine Negative (Negative); THC Screen,Urine Negative (Negative)
[2024-12-08 01:16] LABS: Lactate (Lactic Acid) 1.2 mMol/L (0.4-2.0)
[2024-12-08 01:19] LABS: Sed Rate (ESR) 68 mm/hr (0-15)
[2024-12-08] MEDS: ETOMIDATE INJ 2 MG/ML VIAL 10 ML 20 MG IVP (01:41)
[2024-12-08 01:42] LABS: Alcohol, Blood Medical < 3.0 mg/dL (0-10.0)
[2024-12-08] MEDS: SUCCINYLCHOLINE INJ 20 MG/ML VIAL 10 ML 200 MG IV (01:44)
--- NOTE | 2024-12-08 01:47 | XR_ITS ---
Indication: AP chest single view Technique one AP portable semiupright chest single view Exam date and time: December 08, 2024 1434 hours COMPARISON: December 07, 2024 INDICATIONS: Hypoxic respiratory failure today FINDINGS: Mild opacity left base consider aspiration pneumonia Orogastric tube satisfactory position Tracheal tube tip 4 cm above yany IMPRESSION: Mild opacity left base, consider aspiration pneumonia Tracheal tube tip 4 cm above yany
--- NOTE | 2024-12-08 01:52 | PRELIM_ITS ---
CT angiogram of the head and neck with intravenous contrast (axial sections with sagittal and coronal reformats) December 08, 2024 0039 hours Clinical History: Focal neuro deficit, stroke suspected Poor historian & no priorsComparison: None.Findings:Head: The internal carotid, middle and anterior cerebr al arteries are patent bilaterally. The intracranial vertebral arteries are patent. The vertebrobasil ar junction, basilar and posterior cerebral arteries are patent. No evidence of large vessel occlusio n, critical stenosis or aneurysm.Neck: The aortic arch to the extent visualized as well as the origin s of the right brachiocephalic, left common carotid, and left subclavian arteries are patent. The com mon carotid arteries, carotid bulbs, and internal and external carotid arteries are patent. The origi ns of the vertebral arteries are unremarkable. The right and left vertebral arteries are codominant. No evidence of vascular occlusion, critical stenosis, dissection or aneurysm. The soft tissues of th e neck are unremarkable. The osseous structures are unremarkable.Impression: Head: No evidence of lar ge vessel occlusion, critical stenosis or aneurysm.Neck: No evidence of vascular occlusion, critical stenosis, dissection or aneurysm.Discussion Details: Results verbally communicated to Marko Hemphill RN at 04:48 AM ET 08/12/2024. A call back number is provided to facilitate direct [id number] noa communication. Report Electronically Signed By: Michoacano Rendon 12/08/2024 1:52:09 AM [EST]
[2024-12-08 01:53] LABS: C-Reactive Protein 2.1 mg/dL (0.0-0.9); Procalcitonin 0.22 ng/ml (0.0-0.49)
[2024-12-08] MEDS: MIDAZOLAM INJ 1 MG/ML VIAL 2 ML 4 MG IV ×2 (02:14→05:49)
[2024-12-08] MEDS: PROPOFOL 1,000 MG IVPB 1,000 MG/100 ML VIAL 2.722 MG IV (02:15)
--- NOTE | 2024-12-08 02:31 | ESOP_ITS ---
Procedures Procedure Date / Time 12/08/24 0231 Procedure Narrative Procedure Narrative: Endotracheal Intubation Date: 12-08-2024 Time: 02:00 AM Indication:?Respiratory Distress/ Altered mental status to protect air way Performing Physician: Sanju Sotelo MD Attending Physician: Vianney Morris MD A time-out was completed verifying correct patient, procedure, site, positioning, and special equipment if applicable. The patient was placed in a flat position. Sedation was obtained using?Versed 4mg, succinylcholine 200mg and?Etomidate 20mg. The patient was initially ventilated using an ambu bag to achieve 100% oxygen sats. The?GLIDESCOPE / MAC 3 BLADE?was used and inserted into the oropharynx at which time there was a Grade 1 view of the vocal cords. A 8.0-belarusian endotracheal tube was inserted and visualized going through the vocal cords. The stylette was removed. Colorimetric change was visualized on the CO2 meter. Breath sounds were heard in both lung downs equally. The endotracheal tube was placed at?24 cm, measured at the teeth. Attending Dr Morris was present for the entire procedure. A chest x-ray was ordered to?verify?endotracheal tube placement. Estimated Blood Loss: 0ml The patient tolerated the procedure well and there were no complications - Sanju Sotelo MD, PGY2 The patient was seen by the resident and myself. I, the co-signing physician, was present during the entire ER visit, history. PE, and management of this patient. I read and agree with the plan and documentation. Vianney Smart MD FACEP
--- NOTE | 2024-12-08 02:39 | ESOP_ITS ---
Procedures Procedure Date / Time 12/08/24 0239 Procedure Narrative Procedure Narrative: Lumbar Puncture Procedure Note Date: 12-08-2024 Time: 02:20 AM Indication:? Altered mental status Performing Physician: Sanju Sotelo MD Attending?Physician: Vianney Morris MD Procedure summary: A time-out was completed verifying correct patient, procedure, site, positioning, and special equipment if applicable. The procedure was described to the patient in the presence of . All the indications and potential side effects of the procedure were discussed in details (including but not limited to risk of bleeding,?infection, nerve injury and post LP headache). Patient was understanding, agreeable and all questions were answered. The patient was placed in the?right lateral?decubitus position in a semi- position with help from the nursing staff. The area was cleansed and draped in usual sterile fashion. 1% lidocaine was used anesthetize the surrounding skin area. A 3.5-inch spinal n eedle was placed in the?L3-L4 interspace. Clear cerebral spinal fluid was obtained. Four tubes were filled with 1cc each of CSF in first three tubes and 2cc of CSF in the fourth tube. These were sent for the usual tests, including 1 tube to be held for further analysis if needed. Attending Dr Morris was present for the entire procedure to supervise. Estimated Blood Loss: 1ml. Complications: No complications during the procedure. - Sanju Sotelo M.D., PGY2 The patient was seen by the resident and myself. I, the co-signing physician, was present during the entire ER visit, history. PE, and management of this patient. I read and agree with the plan and documentation. Vianney Smart MD FACEP
[2024-12-08 02:51] LABS: CSF Mononuclear 78.6 %; CSF Red Blood Cell 0.001 /cmm; CSF White Blood Cell 262 /cmm
[2024-12-08 02:53] LABS: Coccid Serology, CF CSF (UCD)* See Sep Rpt
[2024-12-08 02:57] LABS: CSF Cell Count Tube # Tube # 4; CSF Color Colorless (Colorless); CSF, Appearance Clear (Clear)
[2024-12-08 02:58] LABS: CSF Polynuclear WBC 21.4 %
[2024-12-08] MEDS: MIDAZOLAM/NS 100 MG IVPB 100 MG/100 ML BAG 10 MG IV (03:04)
[2024-12-08 03:18] LABS: Protein Total,CSF 160 mg/dL (8-32)
[2024-12-08 03:23] LABS: Glucose,CSF 26 mg/dL (40-70)
[2024-12-08] MEDS: cefTRIAXone/D5w 1gm IV premix 50 ML IV ×3 (03:32→03:49)
[2024-12-08] MEDS: ACETAMINOPHEN IVPB 1,000 MG/100 ML VIAL 250 MG IV (03:35)
[2024-12-08] MEDS: Ampicillin Inj 2,000 MG in SODIUM CHLORIDE 0.9% (P) 100 ML 100 MG IV (03:37)
[2024-12-08 03:48] LABS: CSF Gram Stain Alert Gram Stain Completed
[2024-12-08 04:05] LABS: Ag, Group B Strep Negative (Negative); Ag, H Influenza B Negative (Negative); Ag, N Mening B/Ecoli K1 Negative (Negative); Ag, N Meningitidis ACY W135 Negative (Negative); Ag, Strep Pneumonia Negative (Negative)
[2024-12-08] MEDS: Vancomycin Inj 2,000 MG in SODIUM CHLORIDE 0.9% 500 ML 500 ML 150 MG IV (04:22)
--- NOTE | 2024-12-08 04:35 | ESHP_ITS ---
Documentation for date of: 12/08/24 [facility] History of Present Illness Chief complaint: AMS History of present illness: Mr. Alberto Donovan is a 28-year-old male with no known past medical history who presented to the ED on 12/07/2024 due to altered mental status. Due to the patient being intubated and sedated at the time of the initial evaluation, history was obtained from chart review and from the patient's . Per the patient's , she noted he had a pneumonia approximately 1 month ago with associated symptoms of myalgias and fevers. She also noted the patient has been having frontal and occipital headaches, intermittent chills and nausea and vomiting over the last 2 weeks and has been feeling generally unwell. She also notes that 2 weeks prior he had a episode where he was mumbling his words and was unintelligible. She noted that the episode lasted for short time and resolved on its own. She did also note that the patient is known to use cocaine but is unsure when he last used cocaine. Due to the patient's acute change in mentation, the patient was subsequently brought to the ED via EMS. ED course: The patient's vitals on arrival to the ED were within normal limits except for a elevated blood pressure of 194/107. Initial labs were notable for a WBC of 13.2, ESR of 68 and CRP of 2.1. A CHEM panel revealed a low sodium of 127 and chloride of 93. Serum osmolality was also low at 254. Creatinine kinase was slightly elevated at 287. Lactic acid was within normal limits. Urinalysis was WNL. urine toxicology was negative. A chest x-ray was negative for any active disease processes. A stroke alert was initiated due to the patient's acute change in mentation. A noncontrast head CT was negative for any acute intracranial hemorrhage, mass effect or midline shift. CT angiogram of the head and neck with contrast was negative for any LVO or stenosis. Due to the patient becoming combative and aggressive, the decision was made to sedate the patient with intubation. Due to concern of meningitis/encephalitis, an LP was performed which showed elevated WBC of 262 and protein of 160 and low glucose of 26 consistent with a [employer] infection. The patient was subsequently admitted to the ICU for workup of meningitis/encephalitis and ventilator management. Review of Systems Review of Systems ROS Unobtainable: unobtainable due to mental status and due to endotracheal tube Past Medical History Past Medical History Comments PMH COMMENT: Past Medical History: No significant past medical history Past Surgical History: No past surgical procedures Home Medications: No medications Allergies: NKDA Family History: Noncontributory Social History: EtOH usage: Occasional EtOH usage Smoking History: No past smoking history noted Illicit drug usage: Patient's states that he does used cocaine in the past, unknown last usage Exam Vital Signs Temp Pulse Resp BP Pulse Ox O2 Del Method O2 Flow Rate 100.4 F 111 H 18 122/80 100 Mechanical Ventilation 4 12/08/24 03:14 12/08/24 04:04 12/08/24 04:04 12/08/24 04:04 12/08/24 04:04 12/08/24 04:04 12/07/24 23:25 FiO2 60 12/08/24 04:04 Narrative Exam General: GCS 3T HEENT: NC/AT, NT, patient noted to wince upon flexion of the neck Lungs: Clear to auscultation bilaterally CVS: Regular rate and rhythm, no murmurs, rubs or gallops appreciated ABD: Soft, nontender, nondistended EXT: No edema, warm and well-perfused unable to assess range of motion Neuro: Unable to assess. No gross focal neurological deficits noted Results: Labs 12/08/24 05:35 12/07/24 23:15 Labs: Short CBC 12/07/24 Range/Units 23:15 WBC 13.2 H (3.8-10.6) Thou/mm3 Hgb 14.4 (13.5-16.0) g/dL Hct 40.2 L (41.0-53.0) % Plt Count 261 (140-440) Thou/mm3 BMP 12/07/24 23:15 Sodium 127 L Potassium 3.5 Chloride 93 L Carbon Dioxide 22.9 BUN 8 L Creatinine 1.0 Glucose 123 H Calcium 9.7 Cardiac Enzymes 12/07/24 Range/Units 23:15 Total Creatine Kinase 287 H (34-171) U/L Troponin I < 0.020 (0.0-0.045) ng/mL Liver Function 12/07/24 Range/Units 23:15 Total Bilirubin 1.1 (0.3-1.2) mg/dL AST 21 (0-34) U/L ALT 42 (10-49) U/L Alkaline Phosphatase 76 (46-116) U/L Albumin 4.9 (3.5-5.0) gm/dL Urine 12/08/24 Range/Units 00:15 Urine Color Colorless A (Lt Yel-Yel) Urine Clarity Clear (Clear/Hazy) Urine pH 7.5 H (5.0-7.0) Ur Specific Freedom 1.005 (1.001-1.035) Urine Protein Negative (Neg - Trace) Urine Glucose (UA) Negative (Negative) ABG Interpretation ABG results: 12/07/24 23:15 VBG pH 7.42 VBG pCO2 37 VBG pO2 179 H VBG Base Excess 0 Quality Measures Quality Measures none Medications Home Medications and Allergies Home Medications ?Medication ?Instructions ?Recorded ?Confirmed ?Type No Known Home Medications 12/07/24 12/07/24 History Allergies Allergy/AdvReac Type Severity Reaction Status Date / Time No Known Allergies Allergy Verified 11/17/24 11:37 Visit Medications Propofol (Diprivan Ivpb) 1,000 mg in 100 mls @ 2.722 mls/hr IV .Q24H PRN; Protocol PRN Reason: PER PROTOCOL Stop: 01/07/25 02:07 Last Titration: 12/08/24 03:32 Dose: 15 mcg/kg/min, 8.165 mls/hr Midazolam HCl (Versed Pf Inj In Ns Premix) 100 mg in 100 mls @ 1 mls/hr IV .Q24H PRN; Protocol PRN Reason: PER PROTOCOL Stop: 12/13/24 02:51 Last Admin: 12/08/24 03:04 Dose: 10 mg/hr, 10 mls/hr Vancomycin HCl 2,000 mg/ (Sodium Chloride) 500 mls @ 150 mls/hr IV X1 ONE Stop: 12/08/24 06:34 Last Admin: 12/08/24 04:22 Dose: 150 mls/hr Acyclovir Sodium 907 mg/ (Sodium Chloride) 118.14 mls @ 100 mls/hr IV X1 ONE Stop: 12/08/24 04:55 Ondansetron HCl (Ondansetron Inj 2 Mg/Ml Inj 2 Ml) 4 mg IV Q4HR PRN PRN Reason: NAUSEA OR VOMITING Stop: 01/06/25 22:06 Last Admin: 12/07/24 23:13 Dose: 4 mg Discontinued Medications Etomidate (Etomidate Inj 2 Mg/Ml Vial 10 Ml) 20 mg IVP X1 ONE Stop: 12/08/24 01:37 Last Admin: 12/08/24 01:41 Dose: 20 mg Sodium Chloride (Ns) 500 mls @ 999 mls/hr IV .Q31M ONE Stop: 12/08/24 01:08 Last Admin: 12/08/24 02:36 Dose: Not Given Acetaminophen (Ofirmev Inj) 1,000 mg in 100 mls @ 250 mls/hr IV X1 ONE Stop: 12/08/24 03:41 Last Infusion: 12/08/24 04:06 Dose: Infused Ceftriaxone Sodium/Dextrose (Rocephin/D5w 1gm Iv Premix) 50 mls @ 100 mls/hr IV X1 ONE Stop: 12/08/24 03:46 Last Admin: 12/08/24 03:44 Dose: 100 mls/hr Ampicillin Sodium 2,000 mg/ (Sodium Chloride) 100 mls @ 100 mls/hr IV X1 ONE Stop: 12/08/24 04:18 Last Admin: 12/08/24 03:37 Dose: 100 mls/hr Ceftriaxone Sodium/Dextrose (Rocephin/D5w 1gm Iv Premix) 50 mls @ 100 mls/hr IV X1 ONE Stop: 12/08/24 04:06 Last Infusion: 12/08/24 04:06 Dose: Infused Ketamine HCl (Ketamine 50 Mg/Ml Vial 10 Ml) 50 mg IVP X1 ONE Stop: 12/07/24 22:57 Last Admin: 12/07/24 23:13 Dose: 50 mg Lorazepam (Lorazepam 2 Mg/Ml Vial) 2 mg IVP X1 ONE Stop: 12/07/24 23:26 Last Admin: 12/08/24 00:12 Dose: 2 mg Midazolam HCl (Midazolam Inj 1 Mg/Ml Vial 2 Ml) 4 mg IV X1 ONE Stop: 12/08/24 02:07 Last Admin: 12/08/24 02:14 Dose: 4 mg Midazolam HCl (Midazolam Inj 1 Mg/Ml Vial 2 Ml) 4 mg IV X1 ONE Stop: 12/08/24 02:47 Succinylcholine Chloride (Succinylcholine Inj 20 Mg/Ml Vial 10 Ml) 200 mg IV X1 ONE Stop: 12/08/24 01:37 Last Admin: 12/08/24 01:44 Dose: 200 mg Assessment & Plan Plan Assessment & Plan Plan: Neurological #Acute encephalopathy Patient was emergently intubated and sedated due to becoming combative and violent. Patient's acute change in mentation most likely due to acute [employer] infection. - Sedation: Propofol and fentanyl gtt. - RASS goal: -2 Cardiology #Hypertension Patient's initial vitals were notable for a BP 194/107 which can be attributed to agitation. Once the patient was intubated and sedated, his BP returned to reference range. Patient has no history of hypertension or anti-hypertensive medication use. -Will continue to actively monitor and trend patient's BP. Pulmonary #Intubated and sedated -F/U ABG Gastrointestinal NPO, no active issues Renal/Genitourinary #Hyponatremia Initial sodium on admission was noted to be low at 127. Dx: Follow-up urine osmolality, urine random sodium, and uric acid. Endocrine No active issues, TSH: pending Hemetology No active issues Infectious Disease #Sepsis secondary to meningitis/encephalitis Due to the patient presenting with altered mental status, low grade temperature of 100.4 and physical exam finding of pain on neck flexion, there is suspicion for meningitis/encephalitis. Lumbar Puncture revealed elevated WBC of 262 and protein of 160 and low glucose of 26 consistent with [employer]IST infection -F/U CSF bacterial gram stain, culure and HSV-1/HSV-2 and PCR and cocci -F/U blood cultures -Neurology Consulted, appreciate recommendations -Q4hr neurochecks -Antibiotic regimen: Acyclovir for HSV coverage and Vancomycin Ceftriazone for S.pneumo coverage. Patient recieved Ampicillin for Listeria coverage in the ED, however will defer as patient is < 50 years old. -Dexamethasone 10 mg q6hr Skin - no acute issues, no evidence of skin breakdown Feeding: NPO Analgesia: Fentanyl gtt Sedation: Propofol and fentanyl gtt Thromboembolic prophylaxis: Heparin 5000 units SC q8hrs Stress Ulcer prophylaxis: pantoprazole 40 mg qday Glucose control: None Patient's case was discussed with supervising attending physician Dr. Collette Lowery M.D. Internal Medicine PGY-3 Attending Provider Attestation/Addendum Face to face evaluation was performed by me. I have personally seen and examined the patient. I discussed the assessment and plan with the entire medicine team. I reviewed available medical records, imaging studies, laboratory results. I agree with the above subjective data, objective findings, assessment and plan except as corrected by me or noted below Acute enccephalopathy infectious acute hypoxic resp failure Possible meningitis or encephalitis intubated empiric Abxs for meniginitis, systemic steroids, follow cultures
[2024-12-08] MEDS: DEXAMETHASONE SOD PHOS INJ 10 MG/ML VIAL IV ×3 (05:49→18:12)
[2024-12-08 06:03] LABS: HIV (1&2) Antibody Rapid Non-Reactive
[2024-12-08 06:08] LABS: Basophils % (Auto) 0 % (0-2.5); Eosinophils % (Auto) 0 % (0-10); Hematocrit 34.2 % (41.0-53.0); Hemoglobin 12.2 g/dL (13.5-16.0); Immature Granulocytes % (Auto) 1 % (0-0); Immature Granulocytes Auto 0.05 Thou/mm3 (0.00-0.00); Lymphocytes # (Auto) 1.5 Thou/mm3 (1.0-4.8); Lymphocytes % (Auto) 15 % (10-50); Mean Corpuscular HGB Conc 35.7 g/dl (31.0-37.0); Mean Corpuscular Hemoglobin 29.5 pg (25.0-35.0); Mean Corpuscular Volume 83 fL (80-100); Monocytes # (Auto) 0.7 Thou/mm3 (0.0-0.8); Monocytes % (Auto) 7 % (0-12); Neutrophils # (Auto) 7.7 Thou/mm3 (1.8-7.7); Neutrophils % (Auto) 77 % (37-80); Nucleated Red Blood Cell % 0 /100 WBC (0); Platelet Count 211 Thou/mm3 (140-440); RDW Standard Deviation 38.7 fL (35.1-43.9); Red Blood Count 4.13 Miln/mm3 (4.50-5.90); White Blood Count 9.9 Thou/mm3 (3.8-10.6)
[2024-12-08 06:10] LABS: Base Excess 0 (-3-3); HCO3 23 mEq/L (20-26); Inspired Oxygen, FIO2 45 %; O2 Saturation 100 % (91-98); PCO2 32 mmHg (32.0-48.0); PO2 188 mmHg (83-108); pH, Arterial 7.47 (7.35-7.45)
--- NOTE | 2024-12-08 06:16 | PC.NURSE ---
0605 CALLED PHARMACY FOR ACYCLOVIR, STATED THEY WOULD BRING TO ED IN ABOUT 30 MIN.
[2024-12-08 06:20] LABS: Allen Test Not Performed; Puncture Site Site Not Noted
[2024-12-08] MEDS: SODIUM CHLORIDE 0.9% 1000 ML 1,000 ML 999 ML IV (06:20)
[2024-12-08] MEDS: SODIUM CHLORIDE 0.9% IV (06:49)
[2024-12-08] MEDS: ACYCLOVIR IV (06:49)
[2024-12-08 07:49] LABS: Alanine Aminotransferase 34 U/L (10-49); Albumin, Serum 3.9 gm/dL (3.5-5.0); Albumin/Globulin Ratio 1.6 (1.2-2.2); Alkaline Phosphatase 60 U/L (46-116); Anion Gap 8 (7-16); Aspartate Amino Transferase 24 U/L (0-34); BUN/Creatinine Ratio 10 Ratio (12-20); Bilirubin,Total 0.6 mg/dL (0.3-1.2); Blood Urea Nitrogen 9 mg/dL (9-23); Calcium 8.2 mg/dL (8.3-10.6); Calcium (Corrected) 8.3 mg/dL (8.5-10.1); Chloride 98 mMol/L (98-107); Cholesterol 99 mg/dL (132-200); Creatinine (Component) 0.9 mg/dL (0.6-1.3); Globulin 2.5 gm/dL (2.3-3.5); Glucose 109 mg/dL (74-106); HDL Cholesterol 25 mg/dL (40-60); LDL Cholesterol,Calculated 59 mg/dL (0-130); Magnesium 1.8 mg/dL (1.6-2.6); Osmolality,Calculated 260 (275-295); Potassium 3.8 mMol/L (3.4-5.1); Sodium 130 mMol/L (136-145); Thyroid Stimulating Hormone 1.08 uIU/mL (0.55-4.78); Total Protein 6.4 gm/dL (5.7-8.2); Triglycerides 77 mg/dL (30-150); eGFR > 60 See Note
[2024-12-08] MEDS: fentaNYL 2,500 MCG/250 ML BAG 2,500 MCG/250 ML BAG IV (08:23)
[2024-12-08] MEDS: HEPARIN SOD INJ 5000 UNIT/ML VIAL SC (08:23)
[2024-12-08] MEDS: PANTOPRAZOLE INJ 40 MG VIAL IVP (08:23)
--- NOTE | 2024-12-08 08:31 | PC.NURSE ---
Received report from Eb ESTEVES. Pt arrived to ICU mechanically ventilated accompanied by Hunter ESTEVES, Cabrrea Ye. Versed drip currently running at Dose 10ml/hr. Md Verma notified of discontinued medication running and ordered to wean off versed, start fentanyl and continue propofol.
[2024-12-08] MEDS: FLUCONAZOLE 100 MG TABLET 800 MG PO (09:50)
[2024-12-08] MEDS: PROPOFOL 1,000 MG IVPB 1,000 MG/100 ML VIAL 8.165 MG IV (10:49)
--- NOTE | 2024-12-08 11:00 | CHAP ---
Patient was visited by the Spiritual Care Volunteer who prayed outside door for them. (Volunteer was in the hospital from c 10:00-11:00)
--- NOTE | 2024-12-08 11:01 | PC.DIETICIAN ---
Nutrition prescription 1. Vital 1.2 at 25 ml/hr via OG tube by pump. Advance 10 ml every 8 hrs to goal rate of 55 ml/hr x 24 hrs. If no IV fluids, water flushes of 25 ml/hr (or per MD). 2. ProStat 30ml BID via OG tube.
--- NOTE | 2024-12-08 13:25 | ESPR_ITS ---
<Statement entered by Woo Barcenas MD - 12/10/24 10:09> TOTAL TIME: 45MINUTES ON DIRECT MEDICAL CARE, MANAGEMENT - COORDINATION AND COUNSELING > 50% OF TOTAL TIME I saw and evaluated the patient. I reviewed the resident?s note and agree with findings and plan as documented in the resident?s note. 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 Rivera, and was involved in the care of this patient. I personally saw and examined the patient and discussed the assessment and plan with the entire medicine team, including my attending. I agree with the assessment and plan as documented. Patient's care was discussed with attending physician, Dr. Barcenas. Tarik Hackett MD PGY-2. Documentation for date of: 12/08/24 Subjective Subjective Interval history: 12/08: Patient seen and examined at bedside. No acute events overnight. LP results WBC 262, protein 160, glucose 76, gram stain negative. 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 Pt today was started on high dose fluconzaole 800 mg and will continue 400 BID tomorrow. Previous admission in October last yr, he was discharged from ED with Tamiflu. CXR had shown right PNA and bedside flu was positive. Cocci was not tested at that time. This admission,. CXR read states no active lung disease. However, there appears to be some infiltrate in right lower lobe. 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 Will continue to monitor signs of any ICP. CT head was negative for any hemorrhage/midline shift. Stop antiviral, will continue ceftriaxone for empiric therapy. Dietary was consulted and pt was started on tube feeds today. Sodium is uptrending to 130 today, WBCs downtrending 9.9, Cr 0.9. Continue to wean off sedation and assess mentation. Exam Vital Signs Temp Pulse Resp BP Pulse Ox O2 Del Method O2 Flow Rate 97.8 F 69 15 116/61 99 Mechanical Ventilation 4 12/08/24 07:56 12/08/24 11:02 12/08/24 07:56 12/08/24 11:02 12/08/24 11:02 12/08/24 07:56 12/07/24 23:25 FiO2 30 12/08/24 11:51 Narrative Exam General: sedated and mechanically ventilated Eyes: pinpoint pupils HEENT: Atraumatic, normocephalic. No JVD noted. Mucosa moist. Cardiovascular: Normal S1 and S2. Regular rate and rhythm. No pitting edema Respiratory: mechanical breath sounds. No wheezing or crackles heard. Abdomen: Soft, nontender, not distended, normal bowel sounds. Skin: Warm to touch, dry, no rashes noted Musculoskeletal: No gross injuries. Objective Labs 12/08/24 05:35 12/08/24 06:58 Labs: Laboratory Results - last 24 hr 12/07/24 12/08/24 12/08/24 23:15 00:15 01:05 WBC 13.2 H RBC 4.90 Hgb 14.4 Hct 40.2 L MCV 82 MCH 29.4 MCHC 35.8 RDW Std Deviation 37.2 Plt Count 261 Neut % (Auto) 72 Lymph % (Auto) 21 [place] % (Auto) 6 Eos % (Auto) 0 Baso % (Auto) 0 Neut # (Auto) 9.5 H Lymph # (Auto) 2.8 [place] # (Auto) 0.8 Eos # (Auto) 0.0 Baso # (Auto) 0.0 Immature Gran # (Auto) 0.05 H Absolute Nucleated RBC 0.00 Immature Gran % 0 Nucleated RBC % 0 ESR 68 H PT 13.2 H INR 1.2 APTT 29.9 Puncture Site ABG pH ABG pCO2 ABG pO2 ABG HCO3 ABG O2 Saturation ABG Base Excess VBG pH 7.42 VBG pCO2 37 VBG pO2 179 H VBG O2 Sat (Nicole) 100 H VBG Base Excess 0 FiO2 Sodium 127 L Potassium 3.5 Chloride 93 L Carbon Dioxide 22.9 Anion Gap 11 BUN 8 L Creatinine 1.0 Estim Creat Clear Calc 122.4 eGFR > 60 BUN/Creatinine Ratio 8 L Glucose 123 H Calculated Osmolality 254 L Lactic Acid 1.2 Uric Acid Calcium 9.7 Corrected Calcium 9.7 Magnesium 2.1 Total Bilirubin 1.1 AST 21 ALT 42 Alkaline Phosphatase 76 Ammonia 26 Total Creatine Kinase 287 H Troponin I < 0.020 C-Reactive Prot, Quant 2.1 H Total Protein 8.3 H Albumin 4.9 Globulin 3.4 Albumin/Globulin Ratio 1.4 Triglycerides Cholesterol LDL Cholesterol, Calc HDL Cholesterol Cholesterol/HDL Ratio Procalcitonin 0.22 TSH Ur Collection Type Voided Urine Color Colorless A Urine Clarity Clear Urine pH 7.5 H Ur Specific Premium 1.005 Urine Protein Negative Urine Glucose (UA) Negative Urine Ketones Negative Urine Blood Negative Urine Nitrite Negative Urine Bilirubin Negative Urine Urobilinogen (Auto) Negative Ur Leukocyte Esterase Negative Urine RBC 2 Urine WBC 4 Ur Squamous Epith Cells 0 Urine Bacteria None CSF Appearance CSF Color CSF WBC CSF RBC CSF Cell Count Tube # CSF Mononuclear WBCs CSF Polynuclear WBCs CSF Glucose CSF Total Protein CSF H.influenzae B Ag CSF N.meningit ACY/W135 CSF N.mening B/E.coli K1 CSF Strep B Antigen CSF Strep pneumoniae Ag Urine Opiates Screen Negative Urine Fentanyl Screen Negative Ur Barbiturates Screen Negative U Amphetamin/Meth Scrn Negative U Benzodiazepines Scrn Negative U Cocaine Metab Screen Negative U Marijuana (THC) Screen Negative Ethyl Alcohol < 3.0 HIV 1&2 Antibody Rapid Non-Reactive HCG (Qual) Negative 12/08/24 12/08/24 12/08/24 02:35 05:35 06:02 WBC 9.9 RBC 4.13 L Hgb 12.2 L D Hct 34.2 L MCV 83 MCH 29.5 MCHC 35.7 RDW Std Deviation 38.7 Plt Count 211 D Neut % (Auto) 77 Lymph % (Auto) 15 [place] % (Auto) 7 Eos % (Auto) 0 Baso % (Auto) 0 Neut # (Auto) 7.7 Lymph # (Auto) 1.5 [place] # (Auto) 0.7 Eos # (Auto) 0.0 Baso # (Auto) 0.0 Immature Gran # (Auto) 0.05 H Absolute Nucleated RBC 0.00 Immature Gran % 1 H Nucleated RBC % 0 ESR PT INR APTT Puncture Site Site Not Noted ABG pH 7.47 H ABG pCO2 32 ABG pO2 188 H ABG HCO3 23 ABG O2 Saturation 100 H ABG Base Excess 0 VBG pH VBG pCO2 VBG pO2 VBG O2 Sat (Nicole) VBG Base Excess FiO2 45 Sodium Potassium Chloride Carbon Dioxide Anion Gap BUN Creatinine Estim Creat Clear Calc eGFR BUN/Creatinine Ratio Glucose Calculated Osmolality Lactic Acid Uric Acid Calcium Corrected Calcium Magnesium Total Bilirubin AST ALT Alkaline Phosphatase Ammonia Total Creatine Kinase Troponin I C-Reactive Prot, Quant Total Protein Albumin Globulin Albumin/Globulin Ratio Triglycerides Cholesterol LDL Cholesterol, Calc HDL Cholesterol Cholesterol/HDL Ratio Procalcitonin TSH Ur Collection Type Urine Color Urine Clarity Urine pH Ur Specific Premium Urine Protein Urine Glucose (UA) Urine Ketones Urine Blood Urine Nitrite Urine Bilirubin Urine Urobilinogen (Auto) Ur Leukocyte Esterase Urine RBC Urine WBC Ur Squamous Epith Cells Urine Bacteria CSF Appearance Clear CSF Color Colorless CSF WBC 262 CSF RBC 0.001 CSF Cell Count Tube # Tube # 4 CSF Mononuclear WBCs 78.6 CSF Polynuclear WBCs 21.4 CSF Glucose 26 L* CSF Total Protein 160 H CSF H.influenzae B Ag Negative CSF N.meningit ACY/W135 Negative CSF N.mening B/E.coli K1 Negative CSF Strep B Antigen Negative CSF Strep pneumoniae Ag Negative Urine Opiates Screen Urine Fentanyl Screen Ur Barbiturates Screen U Amphetamin/Meth Scrn U Benzodiazepines Scrn U Cocaine Metab Screen U Marijuana (THC) Screen Ethyl Alcohol HIV 1&2 Antibody Rapid HCG (Qual) 12/08/24 06:58 WBC RBC Hgb Hct MCV MCH MCHC RDW Std Deviation Plt Count Neut % (Auto) Lymph % (Auto) [place] % (Auto) Eos % (Auto) Baso % (Auto) Neut # (Auto) Lymph # (Auto) [place] # (Auto) Eos # (Auto) Baso # (Auto) Immature Gran # (Auto) Absolute Nucleated RBC Immature Gran % Nucleated RBC % ESR PT INR APTT Puncture Site ABG pH ABG pCO2 ABG pO2 ABG HCO3 ABG O2 Saturation ABG Base Excess VBG pH VBG pCO2 VBG pO2 VBG O2 Sat (Nicole) VBG Base Excess FiO2 Sodium 130 L Potassium 3.8 Chloride 98 Carbon Dioxide 24.0 Anion Gap 8 BUN 9 Creatinine 0.9 Estim Creat Clear Calc 136.0 eGFR > 60 BUN/Creatinine Ratio 10 L Glucose 109 H Calculated Osmolality 260 L Lactic Acid Uric Acid 4.0 Calcium 8.2 L D Corrected Calcium 8.3 L Magnesium 1.8 Total Bilirubin 0.6 D AST 24 ALT 34 Alkaline Phosphatase 60 D Ammonia Total Creatine Kinase Troponin I C-Reactive Prot, Quant Total Protein 6.4 Albumin 3.9 D Globulin 2.5 Albumin/Globulin Ratio 1.6 Triglycerides 77 Cholesterol 99 L LDL Cholesterol, Calc 59 HDL Cholesterol 25 L Cholesterol/HDL Ratio 4.0 Procalcitonin TSH 1.08 Ur Collection Type Urine Color Urine Clarity Urine pH Ur Specific Premium Urine Protein Urine Glucose (UA) Urine Ketones Urine Blood Urine Nitrite Urine Bilirubin Urine Urobilinogen (Auto) Ur Leukocyte Esterase Urine RBC Urine WBC Ur Squamous Epith Cells Urine Bacteria CSF Appearance CSF Color CSF WBC CSF RBC CSF Cell Count Tube # CSF Mononuclear WBCs CSF Polynuclear WBCs CSF Glucose CSF Total Protein CSF H.influenzae B Ag CSF N.meningit ACY/W135 CSF N.mening B/E.coli K1 CSF Strep B Antigen CSF Strep pneumoniae Ag Urine Opiates Screen Urine Fentanyl Screen Ur Barbiturates Screen U Amphetamin/Meth Scrn U Benzodiazepines Scrn U Cocaine Metab Screen U Marijuana (THC) Screen Ethyl Alcohol HIV 1&2 Antibody Rapid HCG (Qual) ABG Interpretation ABG results: 12/07/24 12/08/24 23:15 06:02 ABG pH 7.47 H ABG pCO2 32 ABG pO2 188 H ABG HCO3 23 ABG O2 Saturation 100 H ABG Base Excess 0 VBG pH 7.42 VBG pCO2 37 VBG pO2 179 H VBG Base Excess 0 Quality Measures Quality Measures none Assessment & Plan Assessment Current Active Medications: Generic Name Dose Route Start Last Admin Trade Name Freq PRN Reason Stop Dose Admin Acetaminophen 650 mg 12/08/24 04:23 Acetaminophen 325 Mg Tablet PO 01/07/25 04:22 Q6H PRN Fever >101.0 Dexamethasone Sodium Phosphate 10 mg 12/08/24 04:40 12/08/24 05:49 Dexamethasone Sod Phos Inj 10 Mg/Ml Vial IV 01/07/25 04:39 10 mg Q6HR ALICIA Administration Enoxaparin Sodium 40 mg 12/09/24 09:00 Enoxaparin Sod Inj 40 Mg/0.4 Ml Syringe SC 12/23/24 08:59 QDAY ALICIA Ceftriaxone Sodium 2 gm/ 50 mls @ 100 mls/hr 12/08/24 21:00 Sodium Chloride IV 12/15/24 20:59 Q12HR ALICIA Vancomycin/Sodium Chloride 200 mls @ 120 mls/hr 12/08/24 14:00 Vancomycin/Ns 1 Gm Ivpb IV 12/15/24 13:59 TID [facility] Protocol Fluconazole 400 mg in 200 mls @ 100 mls/hr 12/09/24 09:00 Diflucan/Ns Ivpb IV 12/22/24 08:59 QDAY [facility] Propofol 1,000 mg in 100 mls @ 2.826 mls/hr 12/08/24 11:19 Diprivan Ivpb IV 01/07/25 02:07 .Q24H PRN PER PROTOCOL Protocol 5 MCG/KG/MIN Fentanyl Citrate 2,500 mcg in 250 mls @ 2.5 mls/hr 12/08/24 11:18 Sublimaze Inj 2,500 Mcg/250 Ml Bag IV 12/13/24 05:33 .Q24H PRN PER PROTOCOL Protocol 25 MCG/HR Magnesium Hydroxide 30 ml 12/08/24 04:23 Milk Of Magnesia Susp 30 Ml Udc NG 01/07/25 04:22 QDAY PRN CONSTIPATION Protocol Ondansetron HCl 4 mg 12/07/24 22:07 12/07/24 23:13 Ondansetron Inj 2 Mg/Ml Inj 2 Ml IV 01/06/25 22:06 4 mg Q4HR PRN Administration NAUSEA OR VOMITING Pantoprazole Sodium 40 mg 12/08/24 09:00 12/08/24 08:23 Pantoprazole Inj 40 Mg Vial IVP 01/07/25 08:59 40 mg QDAY [facility] Administration Pharmacy Consult 1 each 12/08/24 09:00 Pharmacy Renal Dose Adjustment 1 Ea XX 01/07/25 08:59 QDAY [facility] Pharmacy Consult 1 each 12/08/24 09:00 Vancomycin Pharmacy To Dose 1 Each Each IV 01/07/25 08:59 QDAY PRN PROTOCOL Plan Alberto Abdi is 28 yr male with no known PMH presented to ED overnight due AMS. Patient was combative and not following instructions therefore sedated and mechanically ventilated. Patient upgraded to ICU for ventilator mgmt and treatment of meningitis. Neuro: #Acute infectious encephalopathy 2/2 #Infectious meningitis #Combative Ddx: Bacterial (Neisseria, strep pneumo, strep B) vs Cocci vs viral (HSV, HIV, enterovirus) Patient was emergently intubated and sedated due to combative and violent behavior. Patient's acute change in mentation most likely due to acute ASSESSMENT MANAGER infection. - Sedation: Propofol and fentanyl gtt. - RASS goal: 0 -Continue to wean sedation and assess mentation/behavior Cardiology #Hypertension-resovled Patient's initial vitals were notable for a BP 194/107 which can be attributed to agitation. Once the patient was intubated and sedated, his BP returned to reference range. Patient has no history of hypertension or anti-hypertensive medication use. -Will continue to actively monitor and trend patient's BP. Resp: #Mechanically ventilated and sedated 2/2 acute encephalopathy -as noted above Gastrointestinal -Tube feedings started today Renal/Genitourinary #Hyponatremia Ddx: SIADH (common in cocci meningitis), adrenal insufficiency, vomiting, diarrhea. 127-->130 -daily CMP Endocrine No active issues, TSH: pending Hemetology No active issues Infectious Disease #Meningitis Ddx: Bacterial (Neisseria, strep pneumo, strep B) vs Cocci vs viral (HSV, HIV, enterovirus) Due to the patient presenting with altered mental status, low grade temperature of 100.4 and physical exam finding of pain on neck flexion, there is suspicion for meningitis/encephalitis. Lumbar Puncture revealed elevated WBC of 262 and protein of 160 and low glucose of 26. (less likely viral) CSF gram stain negative, Neiseria negative, strep pneumno negative IgM cocci serology positive (on 12/08) -started fluconazole today 800mg x1 -continue fluconazole 400 BID starting tomorrow -culure pending -HSV-1/HSV-2 and PCR pending -cocci pending -F/U blood cultures -Neurology Consulted, appreciate recommendations -Q4hr neurochecks -stop Acyclovir -continue Ceftriazone empirically -Dexamethasone 10 mg q6hr Skin - no acute issues, no evidence of skin breakdown Feeding: tube feeding started today Analgesia: Fentanyl gtt Sedation: Propofol and fentanyl gtt DVT prophylaxis: Lovenox 40 daily Stress Ulcer prophylaxis: pantoprazole 40 mg qday Full code (PCP Stephon Lind [phone]) The patient's management plan was discussed with my attending physician Dr. Barcenas and senior Dr. Hackett. Leslie Rivera, PGY-1
[2024-12-08] MEDS: VANCOMYCIN/NS 1 GM IVPB 200 ML IV ×2 (13:59→21:19)
[2024-12-08 14:26] LABS: Cocci Serology, IgM Positive (Negative)
[2024-12-08 14:27] LABS: Cocid Sro, CF/ID (UCD) NO CHG* See Sep Rpt
[2024-12-08 14:41] LABS: CSF Differential Comment Comment Below
[2024-12-09] VITALS (71 sets, daily range): BP systolic 99–129; BP diastolic 52–78; PULSE 40–77; RESP 5–23; TEMP 35–36.7; O2SAT 94–973
[2024-12-09] MEDS: DEXAMETHASONE SOD PHOS INJ 10 MG/ML VIAL IV ×5 (00:20→23:24)
[2024-12-09] MEDS: PROPOFOL 1,000 MG IVPB 1,000 MG/100 ML VIAL 5.652 MG IV (01:46)
[2024-12-09 05:19] LABS: Basophils % (Auto) 0 % (0-2.5); Eosinophils % (Auto) 0 % (0-10); Hematocrit 33.8 % (41.0-53.0); Hemoglobin 11.7 g/dL (13.5-16.0); Immature Granulocytes % (Auto) 1 % (0-0); Lymphocytes # (Auto) 0.9 Thou/mm3 (1.0-4.8); Lymphocytes % (Auto) 11 % (10-50); Mean Corpuscular HGB Conc 34.6 g/dl (31.0-37.0); Mean Corpuscular Hemoglobin 29.8 pg (25.0-35.0); Mean Corpuscular Volume 86 fL (80-100); Monocytes # (Auto) 0.2 Thou/mm3 (0.0-0.8); Monocytes % (Auto) 3 % (0-12); Neutrophils # (Auto) 7.3 Thou/mm3 (1.8-7.7); Neutrophils % (Auto) 86 % (37-80); Nucleated Red Blood Cell % 0 /100 WBC (0); Platelet Count 199 Thou/mm3 (140-440); RDW Standard Deviation 42.1 fL (35.1-43.9); Red Blood Count 3.92 Miln/mm3 (4.50-5.90); White Blood Count 8.5 Thou/mm3 (3.8-10.6)
[2024-12-09] MEDS: VANCOMYCIN/NS 1 GM IVPB 200 ML IV (05:26)
[2024-12-09 05:40] LABS: INR 1.1 (0.9-1.3); Prothrombin Time 12.4 Seconds (9.0-12.2)
[2024-12-09 06:25] LABS: Alanine Aminotransferase 36 U/L (10-49); Albumin/Globulin Ratio 1.4 (1.2-2.2); Alkaline Phosphatase 64 U/L (46-116); Anion Gap 10 (7-16); Aspartate Amino Transferase 19 U/L (0-34); BUN/Creatinine Ratio 17 Ratio (12-20); Bilirubin,Total 0.3 mg/dL (0.3-1.2); Blood Urea Nitrogen 12 mg/dL (9-23); Calcium 9.3 mg/dL (8.3-10.6); Calcium (Corrected) 9.3 mg/dL (8.5-10.1); Carbon Dioxide 22.1 mMol/L (20.0-31.0); Chloride 102 mMol/L (98-107); Creatinine (Component) 0.7 mg/dL (0.6-1.3); Estimated Creatinine Clearance 171.9 mL/min (>60); Globulin 2.9 gm/dL (2.3-3.5); Glucose 143 mg/dL (74-106); Magnesium 2.4 mg/dL (1.6-2.6); Osmolality,Calculated 269 (275-295); Phosphorous 4.5 mg/dL (2.4-5.1); Potassium 4.4 mMol/L (3.4-5.1); Sodium 134 mMol/L (136-145); Total Protein 6.9 gm/dL (5.7-8.2); eGFR > 60 See Note
[2024-12-09 10:00] LABS: Glucose Estimated Average 114 mg/dL (80-131); Hemoglobin A1C 5.6 % Hgb (4.8-6.0)
[2024-12-09] MEDS: ENOXAPARIN SOD INJ 40 MG/0.4 ML SYRINGE SC (10:09)
[2024-12-09] MEDS: cefTRIAXone/D5w 2gm(DO NOT USE 2 GM/50 ML BAG IV ×2 (10:09→20:21)
[2024-12-09] MEDS: FLUCONAZOLE/NS 400 MG IVPB 400 MG/200 ML BAG 100 MG IV ×2 (10:09→20:21)
[2024-12-09] MEDS: PANTOPRAZOLE INJ 40 MG VIAL IVP (10:10)
--- NOTE | 2024-12-09 10:24 | PD.NEUROPROG ---
Documentation for date of: 12/08/24 Subjective Subjective Interval history: Patient was seen in ICU today with his family at the bedside. He is intubated for airway protection and on sedation. No seizures reported Exam - Neurology Vital Signs Temp Pulse Resp BP Pulse Ox O2 Del Method O2 Flow Rate 96.8 F 45 L 15 129/66 98 Mechanical Ventilation 4 12/09/24 08:00 12/09/24 08:45 12/08/24 07:56 12/09/24 08:45 12/09/24 08:45 12/09/24 08:00 12/07/24 23:25 FiO2 30 12/09/24 08:00 Narrative Exam GENERAL APPEARANCE: Well hydrated, well-nourished intubated on mechanical ventilatory support. HEENT: Normocephalic, atraumatic, extraocular movements intact. Pupils: Equal reacting to light NECK: Supple, no JVD or bruits. CARDIOVASULAR: Heart: S1, S2 heard, regular without S3-S4 or murmur no rubs or gallops. LUNGS/CHEST: Clear to auscultation bilaterally. No rails, rhonchi, or wheezing. Normal inspection. ABDOMEN: Soft, nontender, with normal bowel sounds. No pulsatile masses. No rebound, rigidity, or guarding. Normal inspection and palpation. EXTREMITIES: Normal inspection and palpation. No edema, clubbing or cyanosis. SKIN: Warm and dry without rashes. Normal inspection. MUSCULOSKELETAL: No cervical, thoracic, lumbar or midline bony tenderness. Normal inspection. NEURO: Under the effect of sedation, responds to painful stimulation, purposeful movements of the extremities noted PSYCHIATRIC: Limited Objective Labs 12/09/24 04:27 12/09/24 04:27 Labs: Laboratory Results - last 24 hr 12/08/24 12/08/24 12/09/24 01:05 02:35 04:27 WBC 8.5 RBC 3.92 L Hgb 11.7 L Hct 33.8 L MCV 86 MCH 29.8 MCHC 34.6 RDW Std Deviation 42.1 Plt Count 199 Neut % (Auto) 86 H Lymph % (Auto) 11 [place] % (Auto) 3 Eos % (Auto) 0 Baso % (Auto) 0 Neut # (Auto) 7.3 Lymph # (Auto) 0.9 L [place] # (Auto) 0.2 Eos # (Auto) 0.0 Baso # (Auto) 0.0 Immature Gran # (Auto) 0.10 H Absolute Nucleated RBC 0.00 Immature Gran % 1 H Nucleated RBC % 0 PT 12.4 H INR 1.1 Sodium 134 L Potassium 4.4 D Chloride 102 Carbon Dioxide 22.1 Anion Gap 10 BUN 12 Creatinine 0.7 Estim Creat Clear Calc 171.9 eGFR > 60 BUN/Creatinine Ratio [address] Glu mg/dL 114 Hemoglobin A1c 5.6 Calculated Osmolality 269 L Calcium 9.3 Corrected Calcium 9.3 Phosphorus 4.5 Magnesium 2.4 Total Bilirubin 0.3 AST 19 ALT 36 Alkaline Phosphatase 64 Total Protein 6.9 Albumin 4.0 Globulin 2.9 Albumin/Globulin Ratio 1.4 CSF Diff Comment Comment Below Coccidioides IgM Ab Positive A ABG Interpretation ABG results: 12/07/24 12/08/24 23:15 06:02 ABG pH 7.47 H ABG pCO2 32 ABG pO2 188 H ABG HCO3 23 ABG O2 Saturation 100 H ABG Base Excess 0 VBG pH 7.42 VBG pCO2 37 VBG pO2 179 H VBG Base Excess 0 Assessment & Plan Assessment and plan (1) Meningitis: Status: Acute Assessment and plan: CT head, CT angiogram of the head and neck: Continue with all antibiotics for now until the final culture comes back. CSF glucose low, mononuclear lymphocytes, negative Gram stain and culture so far. Continue with Lovenox for DVT prevention (2) Altered mental status: Status: Acute Assessment and plan: Intubated and on mechanical ventilatory support for airway protection. Will try to wean him off of sedation and possible extubation tomorrow
--- NOTE | 2024-12-09 12:41 | EVENTNT_ITS ---
<Statement entered by Oscar Mireles MD - 12/12/24 12:22> I reviewed above note and agree with findings and plans. I have also personally examined the patient with medicine team and went over assessment and plan with medical team including journalism internship and resident physician. Documentation for date of: 12/09/24 Event Note Event Note: The hospitalist team accepted an ICU downgrade, 28-year-old male, Alberto Abdi, who presented with acute altered mental status and combativeness, sedated and intubated, admitted to ICU for meningitis. CT head was negative. Lumbar puncture was done, culture pending. He tested positive for cocci IgM. Continued on FLUCONAZOLE 400 mg BID. Currently stable and on room air. The hospitalist team will resume care of this patient starting on 12/10/2024 at 7 AM. I discussed with and supervised the journalism internship physician involved in the care of this patient. I personally saw and examined the patient and discussed the assessment and plan with the entire medicine team, including my attending. I agree with the assessment and plan as documented above. Dallin Magaña MD PGY2 Internal Medicine
[2024-12-09 14:27] LABS: Vancomycin,Trough 10.5 mcg/mL (5.0-10.0)
--- NOTE | 2024-12-09 14:32 | ESPR_ITS ---
<Statement entered by Keaton Gamboa DO - 12/09/24 16:18> Senior attestation: Patient was examined and case was reviewed with team including attending physician. Note reviewed, I agree with most of its contents and agree with the patient's care. Patient able to follow commands today, does not appear agitated, sedation has been weaned off entirely. SBT performed, patient subsequently extubated without concerns of respiratory distress. Will continue fluconazole, empiric antibiotics continued while cultures remain pending. Patient stable for downgrade to medical floors. Keaton Gamboa DO PGY-3 Documentation for date of: 12/09/24 Subjective Subjective Interval history: 12/08: Patient seen and examined at bedside. No acute events overnight. LP results WBC 262, protein 160, glucose 76, gram stain negative. 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 Pt today was started on high dose fluconzaole 800 mg and will continue 400 BID tomorrow. Previous admission in October last yr, he was discharged from ED with Tamiflu. CXR had shown right PNA and bedside flu was positive. Cocci was not tested at that time. This admission,. CXR read states no active lung disease. However, there appears to be some infiltrate in right lower lobe. 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 Will continue to monitor signs of any ICP. CT head was negative for any hemorrhage/midline shift. Stop antiviral, will continue ceftriaxone for empiric therapy. Dietary was consulted and pt was started on tube feeds today. Sodium is uptrending to 130 today, WBCs downtrending 9.9, Cr 0.9. Continue to wean off sedation and assess mentation. 12/09: Patient seen and examined at bedside. No acute events overnight. Patient has been weaned off all IV sedation with ability to follow commands. No longer combative. He passed SBT and was successfully extubated. Family was at bedside and updated on patient's condition. CSF culture is still pending. Will continue with fluconazole 400 BID for tx of cocci meningitis. Vancomycin and ceftriaxone 2gBID empirically. Sodium uptrending to 134, WBC 8.5, Cr 0.7. Tube feeds were stopped. Will start diet after bedside swallow screen. Case was discussed with primary care team and patient was downgraded to floors for continuation of care. Exam Vital Signs Temp Pulse Resp BP Pulse Ox O2 Del Method O2 Flow Rate 97.5 F 50 L 15 122/68 96 Room Air 2 12/09/24 12:00 12/09/24 14:00 12/08/24 07:56 12/09/24 14:00 12/09/24 14:00 12/09/24 12:00 12/09/24 09:30 FiO2 30 12/09/24 08:00 Narrative Exam General: alert, oriented x3, calm, cooperative Eyes: reactive to light HEENT: Atraumatic, normocephalic. No JVD noted. Mucosa moist. Cardiovascular: Normal S1 and S2. Regular rate and rhythm. No pitting edema Respiratory: No wheezing or crackles heard. Abdomen: Soft, nontender, not distended, normal bowel sounds. Skin: Warm to touch, dry, no rashes noted Neuro: grossly intact, no signs of meningeal irritation Objective Labs 12/09/24 04:27 12/09/24 04:27 Labs: Laboratory Results - last 24 hr 12/08/24 12/09/24 12/09/24 02:35 04:27 13:22 WBC 8.5 RBC 3.92 L Hgb 11.7 L Hct 33.8 L MCV 86 MCH 29.8 MCHC 34.6 RDW Std Deviation 42.1 Plt Count 199 Neut % (Auto) 86 H Lymph % (Auto) 11 [place] % (Auto) 3 Eos % (Auto) 0 Baso % (Auto) 0 Neut # (Auto) 7.3 Lymph # (Auto) 0.9 L [place] # (Auto) 0.2 Eos # (Auto) 0.0 Baso # (Auto) 0.0 Immature Gran # (Auto) 0.10 H Absolute Nucleated RBC 0.00 Immature Gran % 1 H Nucleated RBC % 0 PT 12.4 H INR 1.1 Sodium 134 L Potassium 4.4 D Chloride 102 Carbon Dioxide 22.1 Anion Gap 10 BUN 12 Creatinine 0.7 Estim Creat Clear Calc 171.9 eGFR > 60 BUN/Creatinine Ratio [address] Glu mg/dL 114 Hemoglobin A1c 5.6 Calculated Osmolality 269 L Calcium 9.3 Corrected Calcium 9.3 Phosphorus 4.5 Magnesium 2.4 Total Bilirubin 0.3 AST 19 ALT 36 Alkaline Phosphatase 64 Total Protein 6.9 Albumin 4.0 Globulin 2.9 Albumin/Globulin Ratio 1.4 CSF Diff Comment Comment Below Vancomycin Trough 10.5 H ABG Interpretation ABG results: 12/07/24 12/08/24 23:15 06:02 ABG pH 7.47 H ABG pCO2 32 ABG pO2 188 H ABG HCO3 23 ABG O2 Saturation 100 H ABG Base Excess 0 VBG pH 7.42 VBG pCO2 37 VBG pO2 179 H VBG Base Excess 0 Quality Measures Quality Measures none Assessment & Plan Assessment Current Active Medications: Generic Name Dose Route Start Last Admin Trade Name Freq PRN Reason Stop Dose Admin Acetaminophen 650 mg 12/08/24 04:23 Acetaminophen 325 Mg Tablet PO 01/07/25 04:22 Q6H PRN Fever >101.0 Dexamethasone Sodium Phosphate 10 mg 12/08/24 04:40 12/09/24 13:54 Dexamethasone Sod Phos Inj 10 Mg/Ml Vial IV 01/07/25 04:39 10 mg Q6HR ALICIA Administration Enoxaparin Sodium 40 mg 12/09/24 09:00 12/09/24 10:09 Enoxaparin Sod Inj 40 Mg/0.4 Ml Syringe SC 12/23/24 08:59 40 mg QDAY ALICIA Administration Vancomycin/Sodium Chloride 200 mls @ 120 mls/hr 12/08/24 14:00 12/09/24 05:26 Vancomycin/Ns 1 Gm Ivpb IV 12/15/24 13:59 120 mls/hr TID ALICIA Administration Protocol Fluconazole 400 mg in 200 mls @ 100 mls/hr 12/09/24 09:00 12/09/24 10:09 Diflucan/Ns Ivpb IV 12/22/24 08:59 100 mls/hr BID ALICIA Administration Ceftriaxone Sodium/Dextrose 2 gm in 50 mls @ 100 mls/hr 12/09/24 09:00 12/09/24 10:09 Rocephin/D5w 2gm IV 12/16/24 08:59 100 mls/hr Q12HR ALICIA Administration Magnesium Hydroxide 30 ml 12/08/24 04:23 Milk Of Magnesia Susp 30 Ml Udc NG 01/07/25 04:22 QDAY PRN CONSTIPATION Protocol Ondansetron HCl 4 mg 12/07/24 22:07 12/07/24 23:13 Ondansetron Inj 2 Mg/Ml Inj 2 Ml IV 01/06/25 22:06 4 mg Q4HR PRN Administration NAUSEA OR VOMITING Pantoprazole Sodium 40 mg 12/08/24 09:00 12/09/24 10:10 Pantoprazole Inj 40 Mg Vial IVP 01/07/25 08:59 40 mg QDAY ALICIA Administration Pharmacy Consult 1 each 12/08/24 09:00 12/09/24 09:37 Pharmacy Renal Dose Adjustment 1 Ea XX 01/07/25 08:59 Not Given QDAY ALICIA Pharmacy Consult 1 each 12/08/24 09:00 Vancomycin Pharmacy To Dose 1 Each Each IV 01/07/25 08:59 QDAY PRN PROTOCOL Plan Alberto Abdi is 28 yr male with no known PMH presented to ED overnight due AMS. Patient was combative and not following instructions therefore sedated and mechanically ventilated. Patient upgraded to ICU for ventilator mgmt and treatment of meningitis. Neuro: #Acute infectious encephalopathy (resolved) 12/24 #Infectious meningitis #Combative (resolved) Ddx: Bacterial (Neisseria, strep pneumo, strep B) vs Cocci vs viral (HSV, HIV, enterovirus) Patient was emergently intubated and sedated due to combative and violent behavior. Patient's acute change in mentation most likely due to acute [employer] infection. -no longer on IV sedation -follows commands Cardiology #Hypertension-resovled Patient's initial vitals were notable for a BP 194/107 which can be attributed to agitation. Once the patient was intubated and sedated, his BP returned to reference range. Patient has no history of hypertension or anti-hypertensive medication use. -Will continue to actively monitor and trend patient's BP. Resp: #Hx Cocci pneumonia Passed SBT and extubated today (12/09) Gastrointestinal no active problems Renal/Genitourinary #Hyponatremia-resolving Ddx: SIADH (common in cocci meningitis), adrenal insufficiency, vomiting, diarrhea. 127-->130 -daily CMP Endocrine No active issues, TSH: pending Hemetology No active issues Infectious Disease #Cocci Meningitis Ddx: Bacterial (Neisseria, strep pneumo, strep B) vs Cocci vs viral (HSV, HIV, enterovirus) Due to the patient presenting with altered mental status, low grade temperature of 100.4 and physical exam finding of pain on neck flexion, there is suspicion for meningitis/encephalitis. Lumbar Puncture revealed elevated WBC of 262 and protein of 160 and low glucose of 26. (less likely viral) CSF gram stain negative, Neiseria negative, strep pneumno negative IgM cocci serology positive (on 12/08) - fluconazole 400 BID -culure pending -HSV-1/HSV-2 and PCR pending -cocci pending -F/U blood cultures -Neurology Consulted, appreciate recommendations -Q4hr neurochecks -stop Acyclovir -continue Ceftriazone empirically -Dexamethasone 10 mg q6hr Skin - no acute issues, no evidence of skin breakdown Feeding: Regular DVT prophylaxis: Lovenox 40 daily Stress Ulcer prophylaxis: pantoprazole 40 mg qday Full code (PCP Stephon Lind [phone]) The patient's management plan was discussed with my attending physician Dr. Barcenas and senior Dr. Gamboa. Leslie Rivera, PGY-1
[2024-12-09] MEDS: VANCOMYCIN/WATER 1250 MG IVPB 250 ML 120 MG IV ×2 (15:00→21:20)
[2024-12-10] VITALS (7 sets, daily range): BP systolic 115–131; BP diastolic 56–78; PULSE 54–79; RESP 14–22; TEMP 35.3–36.4; O2SAT 95–97; BMI 31.6
--- NOTE | 2024-12-10 00:30 | PC.NURSE ---
temp at 97.1 after initiating roberto hugger at 38 degrees, temp changed to 32 degrees.
--- NOTE | 2024-12-10 03:20 | PC.NURSE ---
oral temp at 95.6, roberto gger temp changed to 38 degrees.
[2024-12-10] MEDS: VANCOMYCIN/WATER 1250 MG IVPB 250 ML 120 MG IV ×3 (05:08→22:01)
[2024-12-10] MEDS: DEXAMETHASONE SOD PHOS INJ 10 MG/ML VIAL IV (05:09)
[2024-12-10 05:43] LABS: Basophils % (Auto) 0 % (0-2.5); Eosinophils % (Auto) 0 % (0-10); Hematocrit 35.1 % (41.0-53.0); Hemoglobin 12.1 g/dL (13.5-16.0); Immature Granulocytes % (Auto) 1 % (0-0); Immature Granulocytes Auto 0.12 Thou/mm3 (0.00-0.00); Lymphocytes # (Auto) 0.6 Thou/mm3 (1.0-4.8); Lymphocytes % (Auto) 5 % (10-50); Mean Corpuscular HGB Conc 34.5 g/dl (31.0-37.0); Mean Corpuscular Hemoglobin 29.7 pg (25.0-35.0); Mean Corpuscular Volume 86 fL (80-100); Monocytes # (Auto) 0.3 Thou/mm3 (0.0-0.8); Monocytes % (Auto) 2 % (0-12); Neutrophils # (Auto) 10.8 Thou/mm3 (1.8-7.7); Neutrophils % (Auto) 92 % (37-80); Nucleated Red Blood Cell % 0 /100 WBC (0); Platelet Count 213 Thou/mm3 (140-440); RDW Standard Deviation 41.6 fL (35.1-43.9); Red Blood Count 4.08 Miln/mm3 (4.50-5.90); White Blood Count 11.8 Thou/mm3 (3.8-10.6)
[2024-12-10 06:08] LABS: Alanine Aminotransferase 37 U/L (10-49); Albumin, Serum 4.2 gm/dL (3.5-5.0); Albumin/Globulin Ratio 1.6 (1.2-2.2); Alkaline Phosphatase 70 U/L (46-116); Anion Gap 10 (7-16); Aspartate Amino Transferase 11 U/L (0-34); BUN/Creatinine Ratio 16 Ratio (12-20); Bilirubin,Total 0.3 mg/dL (0.3-1.2); Blood Urea Nitrogen 13 mg/dL (9-23); Calcium 9.3 mg/dL (8.3-10.6); Calcium (Corrected) 9.3 mg/dL (8.5-10.1); Carbon Dioxide 22.4 mMol/L (20.0-31.0); Chloride 105 mMol/L (98-107); Creatinine (Component) 0.8 mg/dL (0.6-1.3); Estimated Creatinine Clearance 150.4 mL/min (>60); Globulin 2.7 gm/dL (2.3-3.5); Glucose 156 mg/dL (74-106); Magnesium 2.4 mg/dL (1.6-2.6); Osmolality,Calculated 276 (275-295); Phosphorous 3.4 mg/dL (2.4-5.1); Sodium 137 mMol/L (136-145); Total Protein 6.9 gm/dL (5.7-8.2); eGFR > 60 See Note
[2024-12-10] MEDS: ENOXAPARIN SOD INJ 40 MG/0.4 ML SYRINGE SC (09:05)
[2024-12-10] MEDS: FLUCONAZOLE/NS 400 MG IVPB 400 MG/200 ML BAG 100 MG IV ×2 (09:06→20:25)
[2024-12-10] MEDS: PANTOPRAZOLE INJ 40 MG VIAL IVP (09:06)
[2024-12-10] MEDS: cefTRIAXone/D5w 2gm(DO NOT USE 2 GM/50 ML BAG IV ×2 (09:06→20:25)
--- NOTE | 2024-12-10 11:10 | PC.SS ---
This is 28-year-old, , life partnered male who presented to the ED due to suffering from AMS. Patient appeared alert and oriented to self, place and situation. Patient reported that he resides at home with his sister and life partner, Florin. Patient reported that he is independent with all ADLs, no DME use. Patient denied any current substance use; he self admitted using alcohol, but stopped about two months ago. Patient does not have a PCP. Karoline reported that prior to admission, patient was suffering from V/h and A/h. He was responding to internal stimulation. Patient reported that he has no recollection. Patient denied any previous or current mental health illnesses. When medically clear, patient will return home, no transportation is needed. Discharge plan: home with family, no transportation is needed.
--- NOTE | 2024-12-10 11:46 | PD.RESPRO ---
Documentation for date of: 12/10/24 Subjective Subjective Interval history: Patient was seen at bedside this morning. Overnight patient's temperature did drop to around 95 and he was placed on a Whit hugger and his temperature this morning was 97.5. Patient stated he did not have any coughs or any other complaints at this time. Patient's WBC did uptrend slightly to 11.8, but this is most likely due to dexamethasone. Last chest x-ray on 12/08/2024 that showed that patient had some opacities on the left base. ID consulted. No other complaints at this time. Exam Vital Signs Temp Pulse Resp BP Pulse Ox O2 Del Method O2 Flow Rate 97.5 F 66 14 124/66 96 Room Air 2 12/10/24 08:00 12/10/24 08:00 12/10/24 08:00 12/10/24 08:00 12/10/24 08:00 12/10/24 08:00 12/09/24 09:30 FiO2 30 12/09/24 08:00 Narrative Exam General: A/O x3, no acute distress, well-nourished, well-developed Eyes: PERRL, EOMI. Anicteric, vision grossly intact. Ears: No ear pain, no ear discharge, Hearing grossly intact. Nose: No nasal discharge. Mouth/Throat: Moist mucous membranes, no redness, no lesions. Neck: Neck supple, non-tender, no cervical lymphadenopathy. Lungs: Clear JHO[place] to auscultation and percussion, No accessory muscle use. Cardio: Normal S1/S2, regular rhythm, no murmurs, no JVD Abdomen: Soft, non-tender, no palpable masses, peristalsis present, no guarding or rebound. Extremities: Symmetrical, no significant deformities, no peripheral edema , non-tender, peripheral pulses presents. Skin: No rashes, no lesions, warm to touch. Neuro: No focal neurological deficits. motor and sensory intact Psych: Cooperative, appropriate mood and effect. Objective Labs 12/10/24 05:00 12/10/24 05:00 Labs: Laboratory Results - last 24 hr 12/09/24 12/10/24 13:22 05:00 WBC 11.8 H RBC 4.08 L Hgb 12.1 L Hct 35.1 L MCV 86 MCH 29.7 MCHC 34.5 RDW Std Deviation 41.6 Plt Count 213 Neut % (Auto) 92 H Lymph % (Auto) 5 L [place] % (Auto) 2 Eos % (Auto) 0 Baso % (Auto) 0 Neut # (Auto) 10.8 H Lymph # (Auto) 0.6 L [place] # (Auto) 0.3 Eos # (Auto) 0.0 Baso # (Auto) 0.0 Immature Gran # (Auto) 0.12 H Absolute Nucleated RBC 0.00 Immature Gran % 1 H Nucleated RBC % 0 Sodium 137 Potassium 4.0 Chloride 105 Carbon Dioxide 22.4 Anion Gap 10 BUN 13 Creatinine 0.8 Estim Creat Clear Calc 150.4 eGFR > 60 BUN/Creatinine Ratio 16 Glucose 156 H Calculated Osmolality 276 Calcium 9.3 Corrected Calcium 9.3 Phosphorus 3.4 Magnesium 2.4 Total Bilirubin 0.3 AST 11 ALT 37 Alkaline Phosphatase 70 Total Protein 6.9 Albumin 4.2 Globulin 2.7 Albumin/Globulin Ratio 1.6 Vancomycin Trough 10.5 H ABG Interpretation ABG results: 12/07/24 12/08/24 23:15 06:02 ABG pH 7.47 H ABG pCO2 32 ABG pO2 188 H ABG HCO3 23 ABG O2 Saturation 100 H ABG Base Excess 0 VBG pH 7.42 VBG pCO2 37 VBG pO2 179 H VBG Base Excess 0 Quality Measures Quality Measures none Assessment & Plan Assessment Current Active Medications: Generic Name Dose Route Start Last Admin Trade Name Freq PRN Reason Stop Dose Admin Acetaminophen 650 mg 12/08/24 04:23 Acetaminophen 325 Mg Tablet PO 01/07/25 04:22 Q6H PRN Fever >101.0 Enoxaparin Sodium 40 mg 12/09/24 09:00 12/10/24 09:05 Enoxaparin Sod Inj 40 Mg/0.4 Ml Syringe SC 12/23/24 08:59 40 mg QDAY ALICIA Administration Fluconazole 400 mg in 200 mls @ 100 mls/hr 12/09/24 09:00 12/10/24 09:06 Diflucan/Ns Ivpb IV 12/22/24 08:59 100 mls/hr BID ALICIA Administration Ceftriaxone Sodium/Dextrose 2 gm in 50 mls @ 100 mls/hr 12/09/24 09:00 12/10/24 09:06 Rocephin/D5w 2gm IV 12/16/24 08:59 100 mls/hr Q12HR ALICIA Administration Vancomycin HCl 250 mls @ 120 mls/hr 12/09/24 14:45 12/10/24 05:08 Vancomycin/Water 1250 Mg Ivpb IV 12/16/24 14:44 120 mls/hr TID ALICIA Administration Magnesium Hydroxide 30 ml 12/08/24 04:23 Milk Of Magnesia Susp 30 Ml Udc NG 01/07/25 04:22 QDAY PRN CONSTIPATION Protocol Ondansetron HCl 4 mg 12/07/24 22:07 12/07/24 23:13 Ondansetron Inj 2 Mg/Ml Inj 2 Ml IV 01/06/25 22:06 4 mg Q4HR PRN Administration NAUSEA OR VOMITING Pantoprazole Sodium 40 mg 12/08/24 09:00 12/10/24 09:06 Pantoprazole Inj 40 Mg Vial IVP 01/07/25 08:59 40 mg QDAY ALICIA Administration Pharmacy Consult 1 each 12/08/24 09:00 12/10/24 10:13 Pharmacy Renal Dose Adjustment 1 Ea XX 01/07/25 08:59 Not Given QDAY ALICIA Pharmacy Consult 1 each 12/08/24 09:00 Vancomycin Pharmacy To Dose 1 Each Each IV 01/07/25 08:59 QDAY PRN PROTOCOL Plan 28-year-old male with no relevant past medical history was admitted to the ICU on 12/08/2024 due to acute encephalopathy. #Acute encephalopathy, resolved, likely secondary to #Cocci meningitis #Acute hypoxic respiratory failure likely secondary to encephalopathy ?Patient initially came in with altered mental status in the setting of infectious meningitis which was later found to be cocci positive. ? Patient today is AO x 3 and has no meningeal signs ?IgM cocci serology positive on 12/08/2024 ? Lumbar puncture that showed CSF with low glucose and high protein Plan: ? Continue fluconazole 400 mg twice daily ?Will continue with ceftriaxone and vancomycin for now as per neurology until final cultures come back. ?Discontinued dexamethasone 10 mg ?CSF culture pending ?Neurology consulted, Appreciate recommendations -consulted infectious disease, appreciate commendations #Cocci pneumonia ? Patient was initially intubated while he was in the ICU and was subsequently extubated on 12/09/2024 ? Initial chest x-ray did not show any pneumonia, but repeat chest x-ray on 12/08/2024 that shows some mild opacities of the left base ? Blood cultures negative in 48 hours Plan: ? Continue fluconazole 400 mg twice daily ? Continue ceftriaxone 2 g and vancomycin [12/08/2024?] ? Will continue to monitor #Leukocytosis ? WBC up trended to 11.8 today likely reactive in the setting of steroid use Plan: ? Will continue to monitor #Normocytic normochromic anemia ? Patient's hemoglobin is 12.1 today and with baseline 14.4 on admission ? This is most likely hemodilutional in the setting of IV fluids Plan: ? Will transfuse hemoglobin less than 7 ? Will continue to monitor #Hypertensive urgency, resolved ? Patient came in initially with high blood pressure of 194/107 ? Today blood pressure stable at 124/66 Plan: ? Will continue to monitor #Hyponatremia, resolved ? Patient came in initially with sodium of 127 ? Sodium today at 137 Plan: ? Will continue monitor Disposition: Patient seen in telemetry pending CSF cx and ID recs. Diet: Regular GI prophylaxis: protonix DVT prophylaxis: Lovenox Code: Full code Case disclosed with Attending Dr. Chi Stephens PGY1
[2024-12-10 12:48] LABS: Vancomycin,Trough 15.8 mcg/mL (5.0-10.0)
--- NOTE | 2024-12-10 16:44 | PC.NURSE ---
Called Team [phone] for patient complaint of headache and throat discomfort.
[2024-12-10] MEDS: ACETAMINOPHEN 325 MG TABLET 650 MG PO (16:57)
--- NOTE | 2024-12-10 19:07 | PC.NURSE ---
SPOKE WITH JUAN, PHARMACIST REGARDING VANCO TROUGH AT 15.8. CLARIFIED IF VANCO DOSE/FREQUENCY NEEDED TO BE ADJUSTED. HE STATED AT THIS TIME, VANCO DOSE/FREQ. DID NOT NEEDED TO BE ADJUSTED. NORMAL VALUE FOR TROUGH FOR SEPSIS IS 15-20. DOSE OK FOR NOW.
--- NOTE | 2024-12-10 22:13 | PC.NURSE ---
REPORT GIVEN TO LINN BAILEY TO ASSUME CARE
--- NOTE | 2024-12-10 23:35 | VVPN_ITS ---
Telemedicine visit statement This visit was conducted with the use of interactive audio and video telecommunications system that permits real time communication between the patient and the provider. Patient's verbal consent for virtual visit was obtained on 12/10/24 at 2335. Documentation for date of: 12/10/24 Subjective Subjective Interval history: Patient is in telemetry, continues to have hypothermia, on bearhugger. c/o headache off and on. Virtual exam Vital Signs Temp Pulse Resp BP Pulse Ox O2 Del Method O2 Flow Rate 96.6 F L 54 L 20 131/78 H 97 Room Air 2 12/10/24 20:00 12/10/24 20:00 12/10/24 20:00 12/10/24 20:00 12/10/24 20:00 12/10/24 20:00 12/10/24 16:00 FiO2 30 12/10/24 16:00 Objective Labs 12/10/24 05:00 12/10/24 05:00 Labs: Laboratory Results - last 24 hr 12/10/24 12/10/24 05:00 12:22 WBC 11.8 H RBC 4.08 L Hgb 12.1 L Hct 35.1 L MCV 86 MCH 29.7 MCHC 34.5 RDW Std Deviation 41.6 Plt Count 213 Neut % (Auto) 92 H Lymph % (Auto) 5 L [place] % (Auto) 2 Eos % (Auto) 0 Baso % (Auto) 0 Neut # (Auto) 10.8 H Lymph # (Auto) 0.6 L [place] # (Auto) 0.3 Eos # (Auto) 0.0 Baso # (Auto) 0.0 Immature Gran # (Auto) 0.12 H Absolute Nucleated RBC 0.00 Immature Gran % 1 H Nucleated RBC % 0 Sodium 137 Potassium 4.0 Chloride 105 Carbon Dioxide 22.4 Anion Gap 10 BUN 13 Creatinine 0.8 Estim Creat Clear Calc 150.4 eGFR > 60 BUN/Creatinine Ratio 16 Glucose 156 H Calculated Osmolality 276 Calcium 9.3 Corrected Calcium 9.3 Phosphorus 3.4 Magnesium 2.4 Total Bilirubin 0.3 AST 11 ALT 37 Alkaline Phosphatase 70 Total Protein 6.9 Albumin 4.2 Globulin 2.7 Albumin/Globulin Ratio 1.6 Vancomycin Trough 15.8 H ABG Interpretation ABG results: 12/07/24 12/08/24 23:15 06:02 ABG pH 7.47 H ABG pCO2 32 ABG pO2 188 H ABG HCO3 23 ABG O2 Saturation 100 H ABG Base Excess 0 VBG pH 7.42 VBG pCO2 37 VBG pO2 179 H VBG Base Excess 0 Assessment & Plan Problem List (1) Altered mental status: Status: Acute Assessment and plan: improving. continue to monitor closely (2) Meningitis: Status: Acute Assessment and plan: csf preliminary culture: negative, final culture: pending ID on board. Could D/C antibiotics and steroids tomorrow.
[2024-12-11] VITALS: BP 128/71; PULSE 45; PULSE 51; RESP 18; TEMP 36; O2SAT 96
[2024-12-11 04:00] VITALS: BP 131/72; PULSE 40; PULSE 48; RESP 16; TEMP 36.4; O2SAT 97
[2024-12-11] MEDS: VANCOMYCIN/WATER 1250 MG IVPB 250 ML 120 MG IV (05:04)
--- NOTE | 2024-12-11 05:13 | PC.NURSE ---
LOWEST HR AT 35. PT WAS IN A DEEP SLEEP, WHEN WOKEN UP, HR WENT UP TO 50-60'S. PT ASYMPTOMATIC. BP STABLE.
[2024-12-11 05:15] LABS: Basophils % (Auto) 0 % (0-2.5); Eosinophils % (Auto) 0 % (0-10); Hematocrit 35.8 % (41.0-53.0); Hemoglobin 12.1 g/dL (13.5-16.0); Immature Granulocytes % (Auto) 1 % (0-0); Immature Granulocytes Auto 0.12 Thou/mm3 (0.00-0.00); Lymphocytes % (Auto) 8 % (10-50); Mean Corpuscular HGB Conc 33.8 g/dl (31.0-37.0); Mean Corpuscular Hemoglobin 29.9 pg (25.0-35.0); Mean Corpuscular Volume 88 fL (80-100); Monocytes # (Auto) 0.6 Thou/mm3 (0.0-0.8); Monocytes % (Auto) 5 % (0-12); Neutrophils # (Auto) 10.9 Thou/mm3 (1.8-7.7); Neutrophils % (Auto) 86 % (37-80); Nucleated Red Blood Cell % 0 /100 WBC (0); Platelet Count 193 Thou/mm3 (140-440); RDW Standard Deviation 44.3 fL (35.1-43.9); Red Blood Count 4.05 Miln/mm3 (4.50-5.90); White Blood Count 12.6 Thou/mm3 (3.8-10.6)
[2024-12-11 05:30] LABS: Alanine Aminotransferase 41 U/L (10-49); Albumin/Globulin Ratio 1.5 (1.2-2.2); Alkaline Phosphatase 72 U/L (46-116); Anion Gap 8 (7-16); Aspartate Amino Transferase 11 U/L (0-34); BUN/Creatinine Ratio 18 Ratio (12-20); Bilirubin,Total 0.2 mg/dL (0.3-1.2); Blood Urea Nitrogen 14 mg/dL (9-23); Calcium 9.3 mg/dL (8.3-10.6); Calcium (Corrected) 9.3 mg/dL (8.5-10.1); Carbon Dioxide 24.5 mMol/L (20.0-31.0); Chloride 106 mMol/L (98-107); Creatinine (Component) 0.8 mg/dL (0.6-1.3); Estimated Creatinine Clearance 155.3 mL/min (>60); Globulin 2.7 gm/dL (2.3-3.5); Glucose 128 mg/dL (74-106); Osmolality,Calculated 278 (275-295); Phosphorous 3.9 mg/dL (2.4-5.1); Potassium 4.1 mMol/L (3.4-5.1); Sodium 138 mMol/L (136-145); Total Protein 6.7 gm/dL (5.7-8.2); eGFR > 60 See Note
[2024-12-11 06:00] VITALS: BMI 31.8
[2024-12-11 08:00] VITALS: BP 140/81; PULSE 47; PULSE 55; RESP 19; TEMP 36.7; O2SAT 96
[2024-12-11] MEDS: ENOXAPARIN SOD INJ 40 MG/0.4 ML SYRINGE SC (08:33)
[2024-12-11] MEDS: FLUCONAZOLE/NS 400 MG IVPB 400 MG/200 ML BAG 100 MG IV (08:33)
[2024-12-11] MEDS: PANTOPRAZOLE INJ 40 MG VIAL IVP (08:33)
[2024-12-11] MEDS: cefTRIAXone/D5w 2gm(DO NOT USE 2 GM/50 ML BAG IV (08:33)
--- NOTE | 2024-12-11 08:54 | PC.SS ---
Follow up note: Possible d/c today. Pending ID rec's.
--- NOTE | 2024-12-11 10:15 | CHAP ---
Patient was visited by the Spiritual Care Volunteer who prayed for them. (Volunteer was in the hospital from 09:00-10:15)
[2024-12-11] MEDS: LACTULOSE SYRUP 20 GM/30 ML UDC PO (10:16)
--- NOTE | 2024-12-11 10:45 | PD.IDPROG ---
Subjective Subjective Interval history: csf glucoser low. but pattern not c/w bacterial process and cx neg at 48h. Exam Vital Signs Temp Pulse Resp BP Pulse Ox O2 Del Method O2 Flow Rate 98.0 F 47 L 19 140/81 H 96 Room Air 2 12/11/24 08:00 12/11/24 08:00 12/11/24 08:00 12/11/24 08:00 12/11/24 08:00 12/11/24 08:00 12/10/24 16:00 FiO2 30 12/10/24 16:00 Objective - Internal Medicine Labs 12/11/24 04:12 12/11/24 04:12 Labs: Laboratory Results - last 24 hr 12/10/24 12/11/24 12:22 04:12 WBC 12.6 H RBC 4.05 L Hgb 12.1 L Hct 35.8 L MCV 88 MCH 29.9 MCHC 33.8 RDW Std Deviation 44.3 H Plt Count 193 Neut % (Auto) 86 H Lymph % (Auto) 8 L [place] % (Auto) 5 Eos % (Auto) 0 Baso % (Auto) 0 Neut # (Auto) 10.9 H Lymph # (Auto) 1.0 [place] # (Auto) 0.6 Eos # (Auto) 0.0 Baso # (Auto) 0.0 Immature Gran # (Auto) 0.12 H Absolute Nucleated RBC 0.00 Immature Gran % 1 H Nucleated RBC % 0 Sodium 138 Potassium 4.1 Chloride 106 Carbon Dioxide 24.5 Anion Gap 8 BUN 14 Creatinine 0.8 Estim Creat Clear Calc 155.3 eGFR > 60 BUN/Creatinine Ratio 18 Glucose 128 H Calculated Osmolality 278 Calcium 9.3 Corrected Calcium 9.3 Phosphorus 3.9 Total Bilirubin 0.2 L AST 11 ALT 41 Alkaline Phosphatase 72 Total Protein 6.7 Albumin 4.0 Globulin 2.7 Albumin/Globulin Ratio 1.5 Vancomycin Trough 15.8 H ABG Interpretation ABG results: 12/07/24 12/08/24 23:15 06:02 ABG pH 7.47 H ABG pCO2 32 ABG pO2 188 H ABG HCO3 23 ABG O2 Saturation 100 H ABG Base Excess 0 VBG pH 7.42 VBG pCO2 37 VBG pO2 179 H VBG Base Excess 0 Assessment & Plan A&P Narrative probable cocci meningitis ams, 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 will move to enteral stopped other abx given neg cx at 48h or more usual rx for cocci meningitis is flucon 800/day life long. there is an interaction with lipid lowering agents (Statins) and txp anti-rejection meds but not much else I can see in clinic if desired. if other tests pos. we can target, but so far no suggestion other than cocci. Low procal noted on arrival. if home, do labs today instead of tomorrow Time Spent With Patient Time: Total time spent is greater than 50% in coordination of care (as documented) at patient's floor/unit and/or counseling patient:
[2024-12-11 12:00] VITALS: BP 143/84; PULSE 52; PULSE 60; RESP 19; TEMP 36.4; O2SAT 97
[2024-12-11 12:09] LABS: Hepatitis C Antibody Non Reactive (Non React)
[2024-12-11 13:45] VITALS: BP 121/87; PULSE 58; RESP 16; TEMP 36.4; O2SAT 98
--- NOTE | 2024-12-11 13:45 | PD.RESDS ---
Planned Discharge Date 12/11/24 DS: Providers Provider Date of admission: 12/08/24 04:18 Primary care physician: Physician No Primary/Family Admitting Provider: John Murdock MD Attending Provider on Admission: Oscar Mireles MD Consults: 12/07/24 22:07 Consult to Neurology / Tele-Neurology Routine Comment: Consulting Provider: [facility] 12/08/24 05:50 Consult to Neurology / Tele-Neurology Urgent Comment: encephalitis/meningitis? Consulting Provider: Bryce Ramon 12/08/24 09:01 Referral Registered Dietitian Urgent Comment: tube feeds 12/08/24 10:15 Referral Infection Control Routine Comment: Reason for Infection Control Referral: TB, MENGI, HEP, MRSA,CDIF 12/10/24 10:25 Consult to Infectious Diseases Routine Comment: Consulting Provider: Rashid Mcnulty Attending Provider on DC: Oscar Mireles MD Discharging Provider: Oscar Mireles MD DS: Diagnosis Problem List Completed Was Problem List Reviewed/Reconciled?: Yes Hospital Course Hospital Course Hospital course: 28-year-old male with no relevant past medical history was admitted to the ICU on 12/08/2024 due to acute encephalopathy. Initially in the ER patient came in with altered mental status as well as complaints of headache for the past week. Initially patient was hypertensive and afebrile. 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 Initial imaging included chest x-ray which was unremarkable, head CT with was unremarkable, head and neck CTA which was unremarkable, and EKG which showed sinus rhythm. In the ICU patient was intubated for 1 day and was extubated on the next day after being admitted to the hospital. He was also downgraded to medical floors on 12/09/2024 as he was alert oriented and was extubated. Neurology stated that patient could be taken off his steroids as well as antibiotics for now. Infectious disease specialist stated that patient's meningitis was most likely in the setting of cocci and recommended to continue fluconazole p.o. 800 mg daily lifelong. At the time of discharge patient was stable enough to be discharged home Discharge plan: ? Please follow-up with your primary care physician in 1 week after discharge ? Please follow-up with neurologist and infectious disease specialist in 1 to 2 weeks after discharge ? 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 We will give you 3-month supply of fluconazole, but will need to follow-up with infectious disease as you will require lifelong therapy with fluconazole. ? Please come back to the ED if symptoms persist or worsen. 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 Mireles and My senior Dr. Magaña PGY2. Alberto Stephens PGY1 Senior Resident Attestation: I discussed with and supervised the architecture internship physician involved in the care of this patient. I personally saw and examined the patient and discussed the assessment and plan with the entire medicine team, including my attending. I agree with the discharge plan as documented above. Dallin Magaña MD PGY2 Internal Medicine Status at Discharge Overall status at discharge: patient is progressing back to baseline Time Spent with Patient Time attestation: Total time spent providing and/or coordinating discharge services:> 35 min Quality: Stroke Pt Provided Written Stroke Discharge Instructions: No Exam Vital Signs Temp Pulse Resp BP Pulse Ox O2 Del Method O2 Flow Rate 97.6 F 52 L 19 143/84 H 97 Room Air 2 12/11/24 12:00 12/11/24 12:00 12/11/24 12:00 12/11/24 12:00 12/11/24 12:12/11/24 12:00 12/10/24 16:00 FiO2 30 12/10/24 16:00 Narrative Exam General: A/O x3, no acute distress, well-nourished, well-developed Eyes: PERRL, EOMI. Anicteric, vision grossly intact. Ears: No ear pain, no ear discharge, Hearing grossly intact. Nose: No nasal discharge. Mouth/Throat: Moist mucous membranes, no redness, no lesions. Neck: Neck supple, non-tender, no cervical lymphadenopathy. Lungs: Clear JHOANA to auscultation and percussion, No accessory muscle use. Cardio: Normal S1/S2, regular rhythm, no murmurs, no JVD Abdomen: Soft, non-tender, no palpable masses, peristalsis present, no guarding or rebound. Extremities: Symmetrical, no significant deformities, no peripheral edema , non-tender, peripheral pulses presents. Skin: No rashes, no lesions, warm to touch. Neuro: No focal neurological deficits. motor and sensory intact Psych: Cooperative, appropriate mood and effect. Discharge Plan Plan Patient Disposition: HOME (Self Care) Patient condition on transfer: Stable Care Plan Goals: ? Please follow-up with your primary care physician in 1 week after discharge ? Please follow-up with neurologist and infectious disease specialist in 1 to 2 weeks after discharge ? 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 We will give you 3-month supply of fluconazole, but will need to follow-up with infectious disease as you will require lifelong therapy with fluconazole. ? Please come back to the ED if symptoms persist or worsen. Prescriptions/Referrals Prescriptions/Med Rec: New fluconazole 200 mg tablet 400 mg PO BID 90 Days Qty: 360 1RF Referrals: No Primary/Family,Physician [Primary Care Provider] - Patient/Caregiver Discharge Instructions Discharge Activity: activity as tolerated Other Discharge Activity Instructions:: ? Please follow-up with your primary care physician in 1 week after discharge ? Please follow-up with neurologist and infectious disease specialist in 1 to 2 weeks after discharge ? 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 We will give you 3-month supply of fluconazole, but will need to follow-up with infectious disease as you will require lifelong therapy with fluconazole. ? Please come back to the ED if symptoms persist or worsen. Education Materials: Meningitis, Understanding Coccidioidomycosis Print Language: Occitan Stand Alone Forms: Tisha Award Info., Patient Portal Info Letter Discharge Order Discharge Orders: Discharge (Routine); Ordered 12/11/24 Ordered By: Brenda Mauricio Quality Discharge Quality Measures VTE prophylaxis
--- NOTE | 2024-12-11 14:14 | ESCONSULT_ITS ---
RE: JEANIE CAMARILLO : 1995 DATE OF CONSULTATION: 12/11/2024 REFERRING PHYSICIAN: John Murdock MD REASON FOR CONSULTATION: Probable coccyx meningitis. HISTORY OF PRESENT ILLNESS: The patient is an unfortunate 28-year-old man admitted for altered meditation. He is much better. His spinal tap was not diagnostic, but glucose was on the low side. There was a lot of mononuclear cells noted. He did have a lot of headache on admission. His chest imaging is abnormal. There is a plan to send him home. His cocci test is positive locally. This does seem like cocci. His medical problems include substance use. He notes no surgery. ALLERGIES: NONE. IMMUNIZATIONS: Last tetanus is not known. He does take a flu shot every year. He has had three or four COVID vaccines and has had pneumococcal vaccination. FAMILY HISTORY: Unremarkable. SOCIAL HISTORY: He is not working currently. He has not worked for about 6 weeks. He does have glucoses on the low side at 26. Valley fever is not felt to be contagious person to person. PHYSICAL EXAMINATION: On exam, the patient is alert and cooperative. His movements are grossly normal. He apparently hopes to go home soon. 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 It is hard to know from presentation alone. It is okay to send him home. He should follow up with his outpatient primary. I am happy to see him. 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 Typically, we will see him if his cf is positive at [facility]. I know that his HIV test is pending or negative on admission and hep C test is pending. He should avoid substances. DT: 11:17:38 TT: 13:01:00 Ref: [id number] - TID: [id number] [facility]
[2024-12-12 23:34] LABS: Enterovirus Source NOT GIVEN; HSV-1 DNA, CSF NOT DETECTED copies/mL; HSV-1 DNA, CSF Source CEREBROSPINAL FLUID
[2024-12-13 06:26] LABS: Enterovirus RNA, PCR CSF NOT DETECTED; HSV-2 DNA, CSF NOT DETECTED copies/mL; VDRL, CSF Qual* NON-REACTIVE
[2024-12-14 06:44] LABS: Oligoclonal Bands, CSF* PRESENT (ABSENT)
== END 2024-12-11 13:49 | disposition home or self-care (01) | DRG 50 ==
LOC: SERX 12-08 03:57 → SERHOLD 12-08 04:37 → S2SX 12-08 07:51 → S2NX 12-09 16:41
PROVIDERS: Internal Medicine Infectious Disease; Student in an Organized Health Care Education/Training Program; Admitting Provider Internal Medicine; Emergency Provider Emergency Medicine; Visit Provider Internal Medicine
DX: B38.4 Coccidioidomycosis meningitis (principal); I10 Essential (primary) hypertension; E87.1 Hypo-osmolality and hyponatremia; J96.01 Acute respiratory failure with hypoxia; B38.2 Pulmonary coccidioidomycosis, unspecified; D64.9 Anemia, unspecified; I16.0 Hypertensive urgency
CPT/HCPCS: 36415; 36600; 70450; 70496; 70498; 71045; 80053; 80061; 80202; 80307; 80320; 81001; 82140; 82550; 82803; 82945; 83036; 83605; 83735; 83916; 83935; 84100; 84145; 84157; 84300; 84443; 84484; 84550; 84703; 85025; 85610; 85652; 85730; 86140; 86171; 86403; 86592; 86635; 86703; 86803; 87040; 87070; 87081; 87086; 87205; 87400; 87498; 87530; 87811; 89051; 93005; 94002; 94003; 96361; 96365; 96366; 96367; 96368; 96372; 96375; 99291; A4649; J0131; J0133; J0290; J0330; J0696; J1100; J1450; J1643; J1650; J2060; J2250; J2251; J2405; J2470; J2704; J3010; J3370; J3371; J3372; J3490; J7030; J7040; J7050; Q9967; A9270; G0480

== ENCOUNTER 2025-09-14 17:52 | Emergency (ER) | payer MEDICAID, SELFPAY ==
[2025-09-14 17:54] VITALS: BMI 33.6
--- NOTE | 2025-09-14 19:05 | EDRME_ITS ---
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 Patient/ deny URI symptoms, AMS, fevers/chills, neck pain, and alcohol, drug use. Chief Complaint: Dizziness Vital signs: Vital Signs Temperature 97.9 F 09/14/25 19:20 Pulse Rate 70 09/14/25 19:20 Respiratory Rate 20 09/14/25 19:20 Blood Pressure 101/66 09/14/25 19:20 Pulse Oximetry (%) 98 09/14/25 19:20 Oxygen Delivery Method Room Air 09/14/25 19:20 Exam: Unevenly dilated pupils, but other ore feeder intact. Neg pronator drift test. Clinical Impression: Brain bleed vs CVA/TIA vs meningitis vs drug use
[2025-09-14 19:20] VITALS: BP 101/66; PULSE 70; RESP 20; TEMP 36.6; O2SAT 98
--- NOTE | 2025-09-14 19:29 | XR_ITS ---
Examination: CT brain head without contrast. 2-D sagittal coronal reconstructions Date and time of exam: September 14, 2025, 1747 hours INDICATIONS: Headaches dilated pupils dizziness episodes beginning 3 days ago COMPARISON: November 27, 2024 CTDI: vol (mGy): 51.1 DLP: (mGycm): 1039 Technique: Multiple CT axial sections of the brain have been obtained, 5 mm slice thickness. Contrast has not been administered. 2-D sagittal, coronal reconstructions have been obtained Low dose protocols were performed. One or more of the following dose reduction techniques were used; automated exposure control, adjustment of the mA and/or KV according to patient size, use of iterative reconstruction technique. Findings: Interval significant hydrocephalus Suspicious for generalized cerebral edema No definite acute hemorrhage No cerebellar tonsillar herniation No midline shift Cranial vault intact IMPRESSION: Interval significant hydrocephalus, suspicious for generalized cerebral edema Recommend brain MRI follow-up, pre and postcontrast Recommend transfer for neurosurgical assessment and possible shunt placement
--- NOTE | 2025-09-14 19:29 | XR_ITS ---
Examination: CTA carotids with intravenous contrast CTA brain, head with intravenous contrast. 2-D sagittal, coronal reconstructions. 3-D reconstructions. Exam date and time: September 14, 2025, 10:55 p.m. INDICATIONS: Headache dizziness episodes today CTDI: vol (mGy) 26.44 DLP: (mGycm) 530 Technique: Multiple CTA axial brain, head carotid images post intravenous contrast injection 75 cc, [id number]. 2-D sagittal, coronal reconstructions. 3-D reconstructions, 3-D post processing including vascular maximum intensity projection images. Low dose protocols were performed. One or more of the following dose reduction techniques were used; automated exposure control, adjustment of the mA and/or KV according to patient size, use of iterative reconstruction technique. Findings: No significant common carotid carotid bifurcation or internal carotid artery stenoses Codominant vertebral arteries with no critical stenoses Intracranial vertebral arteries basilar artery posterior cerebral branches fill with no large vessel occlusions Petrous juxtasellar internal carotid arteries middle cerebral intracerebral branches demonstrate no large vessel occlusions or thrombus No cerebral aneurysmal dilatation IMPRESSION: No significant neck arterial stenoses No cerebral large vessel arterial occlusions thrombus dissection or cerebral aneurysm
[2025-09-14 19:31] LABS: Basophils # (Auto) 0.0 Thou/mm3 (0.0-0.2); Basophils % (Auto) 0 % (0-2.5); Eosinophils # (Auto) 0.0 Thou/mm3 (0.0-0.5); Eosinophils % (Auto) 0 % (0-10); Hematocrit 41.8 % (41.0-53.0); Hemoglobin 14.4 g/dL (13.5-16.0); Immature Granulocytes Auto 0.05 Thou/mm3 (0.00-0.00); Lymphocytes # (Auto) 1.2 Thou/mm3 (1.0-4.8); Lymphocytes % (Auto) 10 % (10-50); Mean Corpuscular HGB Conc 34.4 g/dl (31.0-37.0); Mean Corpuscular Hemoglobin 30.3 pg (25.0-35.0); Mean Corpuscular Volume 88 fL (80-100); Monocytes # (Auto) 0.6 Thou/mm3 (0.0-0.8); Monocytes % (Auto) 5 % (0-12); Neutrophils # (Auto) 11.1 Thou/mm3 (1.8-7.7); Neutrophils % (Auto) 85 % (37-80); Nucleated Red Blood Cell # 0.00 Thou/mm3 (0.00-0.00); Nucleated Red Blood Cell % 0 /100 WBC (0); Platelet Count 167 Thou/mm3 (140-440); RDW Standard Deviation 38.5 fL (35.1-43.9); Red Blood Count 4.76 Miln/mm3 (4.50-5.90); White Blood Count 13.0 Thou/mm3 (3.8-10.6)
[2025-09-14 20:02] LABS: Ammonia < 10 uMol/L (11-32)
[2025-09-14 20:12] LABS: Alanine Aminotransferase 12 U/L (10-49); Albumin, Serum 5.0 gm/dL (3.5-5.0); Albumin/Globulin Ratio 1.8 (1.2-2.2); Alcohol, Blood Medical < 3.0 mg/dL (0-10.0); Alkaline Phosphatase 69 U/L (46-116); Anion Gap 11 (7-16); Aspartate Amino Transferase 13 U/L (0-34); BUN/Creatinine Ratio 13 Ratio (12-20); Bilirubin,Total 0.4 mg/dL (0.3-1.2); Blood Urea Nitrogen 10 mg/dL (9-23); Calcium 9.9 mg/dL (8.3-10.6); Calcium (Corrected) 9.9 mg/dL (8.5-10.1); Carbon Dioxide 25.2 mMol/L (20.0-31.0); Chloride 102 mMol/L (98-107); Creatinine (Component) 0.8 mg/dL (0.6-1.3); Estimated Creatinine Clearance 151.6 mL/min (>60); Globulin 2.8 gm/dL (2.3-3.5); Glucose 103 mg/dL (74-106); Magnesium 2.0 mg/dL (1.6-2.6); Osmolality,Calculated 274 (275-295); Potassium 3.6 mMol/L (3.4-5.1); Sodium 138 mMol/L (136-145); Total Protein 7.8 gm/dL (5.7-8.2); eGFR > 60 See Note
[2025-09-14 22:26] VITALS: BP 131/84; PULSE 88; RESP 18; TEMP 36.6; O2SAT 98
--- NOTE | 2025-09-14 23:24 | EDNOTE_ITS ---
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 Patient/ deny URI symptoms, AMS, fevers/chills, neck pain, and alcohol, drug use. DR. MICHEL MAIN ED EVALUATION: Patient c/o frontal occipital headache for approximately 1 month duration, initially intermittent, although last several days more constant. Headache described as a pressure-like sensation and improved with supine positioning. Reports 1 bout of nausea and vomiting, and occasional blurred vision, no lateral sensory or motor disturbances. 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 PSH: Non-contributory Allergies: None Social: Prior smoker, no alcohol or illicit drug abuse Exam: Unevenly dilated pupils, but other [facility] assisted living intact. Neg pronator drift test. Impression: Brain bleed vs CVA/TIA vs meningitis vs drug use Related Data Previous Rx's ?Medication ?Instructions ?Recorded fluconazole 200 mg tablet 400 mg (2 x 200 mg) PO BID 3 12/11/24 months #360 tabs Allergies Allergy/AdvReac Type Severity Reaction Status Date / Time No Known Allergies Allergy Verified 09/14/25 17:57 Review of Systems Review of Systems Systems Reviewed: All systems reviewed, normal except as documented Past Medical History Past Medical History NEUROLOGIC: Positive Meningitis ED Exam Narrative Physical exam: GEN. APPEARANCE: The patient is alert awake oriented X-3 under no distress, lying down comfortably, does not look ill/toxic. Patient has good eye contact. Patient is cooperative. VITALS: All vitals were reviewed and the pulse ox is 99%, which is normal according to my interpretation HEENT: Normocephalic, atraumatic and nontender. Pupils are equal and reactive. Papilledema. Visual downs intact. Oral mucosa is moist. NECK: Supple, nontender, no meningismus, no JVD. There is no thyromegaly and no lymphadenopathy. CHEST: Nontender on palpation no deformity and no crepitus. CARDIOVASCULAR: Heart regular rhythm, no murmur or gallop rub or extra beats. LUNGS: Clear to auscultation bilaterally with symmetrical chest rise. No laboring tachypnea or wheezing. No intercostal subcostal retraction. No rales and no rhonchi. ABDOMEN: Soft, flat, nontender to palpation, no guarding or rebound tenderness. There are no abnormal masses palpated. No pulsatile masses or bruits. Active and normal bowel sounds. EXTREMITIES:.Normal inspection and palpation. No edema. No cyanosis. Patient i s able to move all 4 extremities well SKIN: Warm and dry, no rashes noted. MUSCULOSKELETAL: No lumbar or midline bony tenderness. There is no CVA tenderness. No paraspinal muscle spasm or tenderness. NEURO: Cranial nerves II through XII grossly intact. There are no focal neurologic deficits noted. GCS is 15 PSYCHIATRIC: Patient is in normal mood and affect, cooperative. LYMPHATICS: No major lymphadenopathy noted. Course Quality Measures none Orders Category Date Time Status CT Screening NOW Care 09/14/25 19:[address] angio carotid w head w Stat Exams 09/14/25 19:[address] head/brain wo con Stat Exams 09/14/25 19:29 Completed Alcohol, Blood Medical Stat Lab 09/14/25 19:13 Completed Ammonia Stat Lab 09/14/25 19:13 Completed CBC Stat Lab 09/14/25 19:13 Completed CMP [Comprehensive Metabolic Panel] Stat Lab 09/14/25 19:13 Completed Drug Screen,Urine Stat Lab 09/14/25 23:07 Completed Mag [Magnesium] Stat Lab 09/14/25 19:13 Completed Urinalysis, C/S if Indicated Stat Lab 09/14/25 23:07 Completed Metoclopramide Inj [Reglan Inj] Med 09/14/25 19:04 Discontinued 10 mg IM X1 ONE Vital Signs Vital signs: Vital Signs Temperature 97.9 F 09/14/25 19:20 Pulse Rate 70 09/14/25 19:20 Respiratory Rate 20 09/14/25 19:20 Blood Pressure 101/66 09/14/25 19:20 Pulse Oximetry (%) 98 09/14/25 19:20 Oxygen Delivery Method Room Air 09/14/25 19:20 Headache MDM Narrative MDM Narrative:: Scribe Attestation: I, Tangela Ojeda, am scribing for and in the presence of Dr. Michel. Provider Notation: Although this document has been carefully reviewed, there may still be some phonetic and other typographical errors. These errors are purely grammatical due to imperfections in the software program and should not be construed in any way to compromise the substance of the patient's medical care during this visit. Patient c/o frontal occipital headache for approximately 1 month duration, initially intermittent, although last several days more constant. Headache described as a pressure-like sensation and improved with supine positioning. Please see PE findings. Laboratory markers, including CBC and serum chemistries, demonstrate marginally elevated WBC of 13, no anemia or thrombocytopenia. Serum chemistries essentially unremarkable. UA without infection. CT scan of brain demonstrates hydrocephalus without signs of herniation with generalized cerebral edema, this is a significant interval change than that of CT performed in November 2024. Patient remained neurologically intact throughout ED course and will require transfer to facility with higher level of care i.e neurological services. Final diagnoses include acute hydrocephalus and Hx coccidioidomycosis. Patient data External records reviewed:: [facility] previous records (Reviewed prior ED records from 12/07/24. Patient was seen for Altered mental status.) Clinical information provided by:: patient Social determinants that could affect healthcare access:: none Patient has the following chronic illnesses:: Meningitis How is presenting disease/condition affected by chronic disease/condition?: exacerbated by Evaluation data The following diagnostics were reviewed and interpreted by me:: lab results and radiology exam(s) Lab and/or radiology exams considered but not ordered:: None Interpretation Summary: RADIOLOGY Head/Brain CT: Findings: Interval significant hydrocephalus Suspicious for generalized cerebral edema No definite acute hemorrhage No cerebellar tonsillar herniation No midline shift Cranial vault intact IMPRESSION: Interval significant hydrocephalus, suspicious for generalized cerebral edema Recommend brain MRI follow-up, pre and postcontrast Recommend transfer for neurosurgical assessment and possible shunt placement Head/Neck CTA: Findings: No significant common carotid carotid bifurcation or internal carotid artery stenoses Codominant vertebral arteries with no critical stenoses Intracranial vertebral arteries basilar artery posterior cerebral branches fill with no large vessel occlusions Petrous juxtasellar internal carotid arteries middle cerebral intracerebral branches demonstrate no large vessel occlusions or thrombus No cerebral aneurysmal dilatation IMPRESSION: No significant neck arterial stenoses No cerebral large vessel arterial occlusions thrombus dissection or cerebral aneurysm Medications / Prescriptions Medications or Prescriptions considered but not ordered:: None Medication administrations:: Medication Administration History Discontinued Medications Metoclopramide HCl (Metoclopramide Inj 5 Mg/Ml Vial 2 Ml) 10 mg IM X1 ONE; Protocol Stop: 09/14/25 19:05 Last Admin: 09/14/25 19:17 Dose: Not Given Documented By: ASA Non-Admin Reason: Cancelled by Provider See above if any Consultations Consultation(s) initiated? (list below): Yes Consultation #1 (Physician, Specialty, Details): Discussed with [facility] for transfer. Reviewed the patient?s HPI, PMHx, lab and/or radiology results. Discussed treatment plan. Time: 03:32 Consultation #2 (Physician, Specialty, Details): [facility] accepts patient for transfer, ED to ED. Time: 04:26 Diagnosis Differential diagnosis headache: migraine, tension headache, subarachnoid hemorrhage, headache, meningitis and sinusitis Most likely diagnosis given after review of the tests above:: Acute hydrocephalus, Hx coccidioidomycosis, Obstructive papilledema Admission Indicated Admission indicated?: not indicated Explain why admission is indicated or not indicated:: Pending transfer to tertiary facility with neurosurgical capabilities Admission Request Was there a request for admission?: No Disposition Plan Disposition Plan: Transfer Discharge Plan Plan Patient Disposition: Xfer Acute Care [facility] Pt Being Transferred to: [facility] Service Needed for Transfer: Neurosurgery Prescriptions/Referrals Prescriptions/Med Rec: No Action fluconazole 200 mg tablet 400 mg PO BID 90 Days Qty: 360 1RF Referrals: No Primary/Family,Physician [Primary Care Provider] - In 1 week Problem List Clinical Impression: Hydrocephalus, History of coccidioidomycosis, Papilledema Patient/Caregiver Discharge Instructions Print Language: Maori Stand Alone Forms: Tisha Award Info., Patient Portal Info Letter
[2025-09-14 23:29] LABS: Collection Type, Urine Clean Catch; Squamous Epithelial Cell,Urine 0 /hpf (0-5)
[2025-09-14 23:31] VITALS: BP 130/85; PULSE 78; RESP 16; TEMP 37; O2SAT 99
[2025-09-14 23:36] LABS: Bilirubin,Urine Negative (Negative); Blood,Urine Negative (Negative); Clarity,Urine Clear (Clear/Hazy); Color,Urine Colorless (Lt Yel-Yel); Culture Indicated,Urine Not Indicated; Glucose, Urine Negative (Negative); Ketones,Urine Negative (Negative); Leukocyte Esterase,Urine Negative (Negative); Nitrite,Urine Negative (Negative); PH,Urine 6.5 (5.0-7.0); Protein,Urine Negative (Neg - Trace); RBC,Urine 1 /hpf (0-3); Specific Gravity,Urine 1.020 (1.001-1.035); Urobilinogen,Urine Negative mg/dL (0.0-1.0); WBC,Urine < 1 /hpf (0-5)
[2025-09-14 23:42] LABS: Amphetamine/Methamp Scrn,U Negative (Negative); Barbiturate Screen,Urine Negative (Negative); Benzodiazepines Screen,Urine Negative (Negative); Benzoylecgonine Screen, Ur Negative (Negative); Fentanyl Screen,Urine Negative (Negative); Opiate Screen,Urine Negative (Negative); THC Screen,Urine Negative (Negative)
[2025-09-15] VITALS: BP 110/85; PULSE 85; RESP 14; TEMP 37; O2SAT 99
--- NOTE | 2025-09-15 00:26 | PC.NURSE ---
0026 CONTACTED [facility] AT THIS TIME, SENT PT PKT.
[2025-09-15 01:00] VITALS: BP 116/75; PULSE 100; RESP 16; TEMP 37; O2SAT 99
--- NOTE | 2025-09-15 01:42 | PC.NURSE ---
0125 CHLOE ARTHURYuval DECLINED DUE TO CAPACITY, WE CAN CALL AGAIN IN THE MORNING. [facility], SPOKE WITH TRANSFER NURSE AND GAVE CLINICALS.
[2025-09-15 02:00] VITALS: BP 120/65; PULSE 75; RESP 14; TEMP 37; O2SAT 99
--- NOTE | 2025-09-15 02:37 | PC.NURSE ---
0237 [facility] DECLINES PT DUE TO CAPACITY.
[2025-09-15 03:00] VITALS: BP 118/70; PULSE 80; RESP 16; TEMP 37.1; O2SAT 99
--- NOTE | 2025-09-15 03:55 | PC.NURSE ---
3872 [facility] CONTACTED PKT SENT IMAGES PUSHED. DR Kauffman ALSO SPOKE WITH TRANSFER NURSE.
[2025-09-15 04:00] VITALS: BP 125/85; PULSE 85; RESP 16; TEMP 37; O2SAT 99
--- NOTE | 2025-09-15 04:56 | PC.NURSE ---
0545 PT ACCEPTED TO [facility] BY DR LOWRY, REPORT TO [phone].
--- NOTE | 2025-09-15 05:02 | PC.NURSE ---
NURSE TO NURSE REPORT GIVEN VIA TELEPHONE TO LINN PETERSON AT [facility].
== END 2025-09-15 05:15 | disposition short-term general hospital (02) ==
PROVIDERS: Physician Assistant; Emergency Provider Emergency Medicine
DX: G91.9 Hydrocephalus, unspecified (principal); H57.04 Mydriasis; Z87.891 Personal history of nicotine dependence
CPT/HCPCS: 36415; 70450; 70496; 70498; 80053; 80307; 80320; 81001; 82140; 83690; 83735; 85025; 99282; A4649; Q9967; G0480

== ENCOUNTER 2025-09-29 18:42 | Emergency (ER) | payer MEDICAID, SELFPAY ==
[2025-09-29 19:02] VITALS: BP 115/80; PULSE 105; RESP 20; TEMP 36.7; O2SAT 98
--- NOTE | 2025-09-29 19:08 | XR_ITS ---
Examination: CT abdomen and pelvis without contrast. Coronal 3-D reconstructions. Sagittal 2-D reconstructions. Date and time of exam: September 29, 2025, 1938 hours INDICATIONS: Onset abdominal pain today CTDI: vol (mGy): 8.89 DLP: (mGycm): 536 Technique: Axial images of the abdomen have been obtained, 3 mm slice thickness Intravenous contrast material has not been administered. Low dose protocols were performed. One or more of the following dose reduction techniques were used; automated exposure control, adjustment of the mA and/or KV according to patient size, use of iterative reconstruction technique. Findings: Right middle lobe pulmonary nodule 21 mm spiculated pulmonary margins Fatty infiltration throughout the liver no focal liver or splenic lesions Contracted gallbladder No pancreatic or adrenal mass No renal or ureteral calculi, no hydronephrosis Normal appendix Minimal fluid distended small bowel loops Abundant stool in the rectosigmoid with thickening of the rectal wall No prostatomegaly IMPRESSION: 21 mm pulmonary nodule right middle lobe, recommend CT chest without contrast follow-up Abundant stool in the rectosigmoid with thickening of the rectal wall, differential would include proctitis
[2025-09-29 19:53] LABS: Basophils # (Auto) 0.0 Thou/mm3 (0.0-0.2); Basophils % (Auto) 0 % (0-2.5); Eosinophils # (Auto) 0.0 Thou/mm3 (0.0-0.5); Eosinophils % (Auto) 0 % (0-10); Hematocrit 41.4 % (41.0-53.0); Hemoglobin 14.6 g/dL (13.5-16.0); Immature Granulocytes Auto 0.10 Thou/mm3 (0.00-0.00); Lymphocytes # (Auto) 1.2 Thou/mm3 (1.0-4.8); Lymphocytes % (Auto) 6 % (10-50); Mean Corpuscular HGB Conc 35.3 g/dl (31.0-37.0); Mean Corpuscular Hemoglobin 30.7 pg (25.0-35.0); Mean Corpuscular Volume 87 fL (80-100); Monocytes # (Auto) 0.7 Thou/mm3 (0.0-0.8); Monocytes % (Auto) 4 % (0-12); Neutrophils # (Auto) 16.7 Thou/mm3 (1.8-7.7); Neutrophils % (Auto) 89 % (37-80); Nucleated Red Blood Cell # 0.00 Thou/mm3 (0.00-0.00); Nucleated Red Blood Cell % 0 /100 WBC (0); Platelet Count 188 Thou/mm3 (140-440); RDW Standard Deviation 39.0 fL (35.1-43.9); Red Blood Count 4.75 Miln/mm3 (4.50-5.90); White Blood Count 18.8 Thou/mm3 (3.8-10.6)
[2025-09-29 19:55] LABS: Alanine Aminotransferase 19 U/L (10-49); Albumin, Serum 4.8 gm/dL (3.5-5.0); Albumin/Globulin Ratio 1.7 (1.2-2.2); Alkaline Phosphatase 111 U/L (46-116); Anion Gap 11 (7-16); Aspartate Amino Transferase 12 U/L (0-34); BUN/Creatinine Ratio 11 Ratio (12-20); Bilirubin,Total 0.4 mg/dL (0.3-1.2); Blood Urea Nitrogen 9 mg/dL (9-23); Calcium 9.8 mg/dL (8.3-10.6); Calcium (Corrected) 9.8 mg/dL (8.5-10.1); Carbon Dioxide 23.3 mMol/L (20.0-31.0); Chloride 103 mMol/L (98-107); Creatinine (Component) 0.8 mg/dL (0.6-1.3); Globulin 2.8 gm/dL (2.3-3.5); Glucose 98 mg/dL (74-106); Lipase 30 U/L (12-53); Osmolality,Calculated 272 (275-295); Potassium 3.9 mMol/L (3.4-5.1); Sodium 137 mMol/L (136-145); Total Protein 7.6 gm/dL (5.7-8.2); eGFR > 60 See Note
[2025-09-29 20:27] LABS: Collection Type, Urine Clean Catch; Squamous Epithelial Cell,Urine 0 /hpf (0-5)
[2025-09-29 20:42] LABS: Bacteria,Urine Rare; Bilirubin,Urine Negative (Negative); Blood,Urine Negative (Negative); Clarity,Urine Clear (Clear/Hazy); Color,Urine Yellow (Lt Yel-Yel); Glucose, Urine Negative (Negative); Ketones,Urine Negative (Negative); Leukocyte Esterase,Urine Negative (Negative); Nitrite,Urine Negative (Negative); PH,Urine 7.5 (5.0-7.0); Protein,Urine Negative (Neg - Trace); RBC,Urine 3 /hpf (0-3); Specific Gravity,Urine 1.021 (1.001-1.035); Urobilinogen,Urine 3.0 mg/dL (0.0-1.0); WBC,Urine 1 /hpf (0-5)
--- NOTE | 2025-09-29 21:19 | PRELIM_ITS ---
CT scan of the abdomen and pelvis without intravenous contrast (axial sections with sagittal and coronal reformats) September 29, 2025 1934 hours Clinical History: asbd pain No prior study is available for comparison. Findings: There is a 2.1 x 1.6 x 1.5 cm pleural based irregular soft tissue nodule in the right middle lobe (axial image 18/284). The lung bases are otherwise clear. The liver, gallbladder, pancreas, spleen, kidneys and adrenals are unremarkable on this noncontrast study. No evidence to suggest bowel obstruction. Fluid filled small bowel loops are noted. Moderate amount of fecal material is present in the colon and rectum with mild rectosigmoid fecal impaction. The appendix is within normal limits. The urinary bladder is unremarkable. There is no free fluid or free air. A ventriculostomy shunt catheter is seen with its tip in the right upper quadrant.There is no adenopathy. The osseous structures are unremarkable. Impression: Fluid filled small bowel loops, nonspecific versus enteritis. Constipation with mild rectosigmoid fecal impaction. 2.1 x 1.6 x 1.5 cm pleural based irregular soft tissue nodule in the right middle lobe, could be neoplastic. Recommend followup as per Fleischner's society guidelines and further workup. Report Electronically Signed By: Aryan Rose 09/29/2025 9:18:54 PM [EST]
--- NOTE | 2025-09-29 21:33 | EDRME_ITS ---
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
--- NOTE | 2025-09-29 21:44 | EDNOTE_ITS ---
ED Abdominal Pain RME/HPI General Chief Complaint: Abdominal Pain Stated complaint: Constipated, fungal meningitis, hx valley fever Time seen by provider: 09/29/25 19:00 Arrival date/time: 09/29/25 18:42 29-year-old male patient came in for evaluation regarding constipation. 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 He was discharged from [place] last week. Patient is ambulatory. 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 worsening of the symptoms this patient decided to start consult here in the emergency room Exam: Abdominal exam noted generalized tenderness no guarding no rebound no rigidity hypoactive bowel sound Impression: Abdominal pain Related Data Previous Rx's ?Medication ?Instructions ?Recorded fluconazole 200 mg tablet 400 mg (2 x 200 mg) PO BID 3 12/11/24 months #360 tabs polyethylene glycol 3350 17 4 g PO QDAY PRN constipati on #238 09/29/25 gram/dose oral powder (Miralax) grams Allergies Allergy/AdvReac Type Severity Reaction Status Date / Time No Known Allergies Allergy Verified 09/29/25 18:51 Review of Systems Review of Systems Narrative Review of Systems: Review of system reviewed and within normal limits except mentioned in HPI ED Exam Narrative Physical exam: VITAL SIGNS: Reviewed. GENERAL APPEARANCE: Alert and interactive, follows commands, no acute distress, HEAD AND FACE: Non-traumatic. ENT: PERRL, pink conjunctivitis, eyelid no trauma, Mucous membrane moist. NECK: Supple, nontender, no nuchal rigidity. CHEST: No tenderness, no crepitus, no paradoxical movement, no retractions. LUNGS: Clear, well ventilated, symmetric, no rales, no wheezing, no ronchi, no stridor, good breath sounds bilaterally. HEART: Regular rate, regular rhythm, no murmur, no gallops. ABDOMEN: Soft, positive bowel sounds, nondistended, no guarding, nontender, no rebound, no masses, RECTAL: Deferred. GENITAL: Deferred. NEUROLOGICAL: Gross motor function intact sensory function intact, Appropriate for age. MUSCULOSKELETAL: low back nontender, full range of motion. EXTREMITIES: Nontender, full range of motion. SKIN: Color pink, dry, no rash, no lacerations, no abrasions, no contusions. LYMPHATICS: Deferred. Course Quality Measures none Orders Category Date Time Status CT abdomen pelvis wo con Stat Exams 09/29/25 19:08 Taken CBC Stat Lab 09/29/25 19:25 Completed Comprehensive Metabolic Panel Stat Lab 09/29/25 19:25 Completed Lipase Stat Lab 09/29/25 19:25 Completed Urinalysis Stat Lab 09/29/25 19:58 Completed Magnesium Citrate Liqd [Citrate of Magnesia Liqd] Med 09/29/25 21:43 Once 300 ml PO X1 ONE Vital Signs Vital signs: Vital Signs Temperature 98.1 F 09/29/25 19:02 Pulse Rate 105 H 09/29/25 19:02 Respiratory Rate 20 09/29/25 19:02 Blood Pressure 115/80 09/29/25 19:02 Pulse Oximetry (%) 98 09/29/25 19:02 Oxygen Delivery Method Room Air 09/29/25 19:02 Abdominal Pain MDM MDM Narrative MDM Narrative:: 29-year-old male patient came in for evaluation regarding constipation. 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 He was discharged from [place] last week. Patient is ambulatory. No confusion noted Patient workup all came back unremarkable except for leukocytosis of 18,000 which could be related to his recent history of meningitis/valley fever. Currently taking Diflucan. Patient's CT scan of the abdomen came back with fluid-filled small bowel loops nonspecific versus enteritis. Constipation with mild rectal sigmoid fecal impaction. There is also 2.1 x 1.6 x 1.5 cm pleural- based irregular soft tissue nodule in the right middle lobe could be neoplastic results discussed with the patient. I believe this is related to his valley fever. I advised the patient to closely follow-up with PCP. Stable for discharge home Patient data External records reviewed:: None Clinical information provided by:: patient Social determinants that could affect healthcare access:: none Patient has the following chronic illnesses:: History of valley fever, history of fungal meningitis How is presenting disease/condition affected by chronic disease/condition?: uneffected by Evaluation data The following diagnostics were reviewed and interpreted by me:: lab results and radiology exam(s) Lab and/or radiology exams considered but not ordered:: None Interpretation Summary: See MDM Medications / Prescriptions Medications or Prescriptions considered but not ordered:: None Medication administrations:: Medication Administration History Magnesium Citrate (Magnesium Citrate 300 Ml Btl) 300 ml PO X1 ONE Stop: 09/29/25 21:44 Magnesium citrate Consultations Consultation(s) initiated? (list below): No Diagnosis Differential diagnosis abdominal pain: abdominal pain, constipation and pancreatitis Most likely diagnosis given after review of the tests above:: Constipation, recent history of valley fever, and fungal meningitis Admission Indicated Admission indicated?: not indicated Admission Request Was there a request for admission?: No Disposition Plan Disposition Plan: Discharge Discharge Attestation Discharge Attestation: The patient and all family members were given an opportunity to ask questions and understood the discharge instructions. Discharge instructions specifically effects, indications for sooner follow up or return to the emergency department, and the expected course of current diagnosis. Patient condition: Stable Discharge Plan Plan Patient Disposition: HOME (Self Care) Discharge Disposition comment: Stable Prescriptions/Referrals Prescriptions/Med Rec: New polyethylene glycol 3350 [Miralax] 17 gram/dose powder 4 g PO QDAY PRN (Reason: constipation) Qty: 238 0RF No Action fluconazole 200 mg tablet 400 mg PO BID 90 Days Qty: 360 1RF Referrals: No Primary/Family,Physician [Primary Care Provider] - In 1 week Problem List Clinical Impression: Constipation Patient/Caregiver Discharge Instructions Discharge Activity: activity as tolerated Education Materials: ED Constipation (Adult) Additional Instructions: Thank you for the opportunity for serving you today. You are stable for discharged . You are advised to: Follow-up with your PCP in 1 to 2 days Return to ED for worsening of symptoms Increase oral fluids Take medication as prescribed Increase fiber in the diet Print Language: Ivorian Stand Alone Forms: Tisha Award Info., Patient Portal Info Letter KAITLYNN/ABDIEL Supervising Physician KAITLYNN/ABDIEL Supervising Physician: MD Venecia
[2025-09-29] MEDS: MAGNESIUM CITRATE 300 ML BTL PO (21:56)
== END 2025-09-29 21:58 | disposition home or self-care (01) ==
PROVIDERS: Nurse Practitioner Family; Emergency Provider Emergency Medicine
DX: K59.00 Constipation, unspecified (principal)
CPT/HCPCS: 36415; 74176; 80053; 81001; 83690; 85025; 99283; A9270